=== PATIENT | female | born 1935 | race Two or more races ===

== ENCOUNTER 2017-10-30 17:54 | Inpatient (IN) | payer MEDICARE, OTHER ==
[~2017-10-30] VITALS: Ht 149.9 cm; Wt 71.0 kg
[2017-10-30] MEDS: Albuterol/Ipratropium 3ml neb HHN SCH ×2 (01:30→12:30)
[~2017-10-30 17:54] MED LIST: ACETAMINOPHEN500 MG ORAL; ISOSORBIDE DINI20 M2 PO; ISOSORBIDE MONO20 MG PO; LEVOTHYROXINE125 MCG ORAL; LIPITOR80 MG ORAL; PLAVIX75 MG ORAL; SERTRALINE HCL25 MG ORAL; TENORMIN100 MG ORAL
[2017-10-30 18:30] VITALS: BP 134/75
[2017-10-30] MEDS ORDERED: Guaifenesin/DM 10ml syrup ORAL PRN (20:30)
[2017-10-30 21:39] LABS: CREATINE KINASE 191 U/L (26-308)
[2017-10-30 21:45] LABS: ALANINE AMINOTRANSFERASE 49 U/L (12-78); ALBUMIN/GLOBULIN RATIO 0.7 (1.0-2.7); ALKALINE PHOSPHATASE 94 U/L (46-116); ANION GAP 5 mmol/L (5-15); ASPARTATE AMINO TRANSFERASE 60 U/L (15-37); BILIRUBIN,TOTAL 0.7 MG/DL (0.2-1.0); BLOOD UREA NITROGEN 11 mg/dL (7-18); CALCIUM 8.9 MG/DL (8.5-10.1); CARBON DIOXIDE 29 MMOL/L (21-32); CHLORIDE 100 MMOL/L (98-107); CREATININE 0.9 MG/DL (0.55-1.30); HEMATOCRIT 36.7 % (37.0-47.0); HEMOGLOBIN 12.8 G/DL (12.0-16.0); LYMPHOCYTES % (AUTO) 19.4 % (20.0-45.0); MEAN CORPUSCULAR VOLUME 90 FL (80-99); MONOCYTES % (AUTO) 5.6 % (1.0-10.0); PLATELET COUNT 270 K/UL (150-450); POTASSIUM 4.7 MMOL/L (3.5-5.1); RED BLOOD COUNT 4.05 M/UL (4.20-5.40); RED CELL DISTRIBUTION WIDTH 12.3 % (11.6-14.8); SODIUM 134 MMOL/L (136-145); WHITE BLOOD COUNT 9.9 K/UL (4.8-10.8)
[2017-10-30] MEDS: Heparin 5000 units/ml inj SUBQ SCH (22:00)
[2017-10-30] MEDS: cefTRIAXone 1 GM in NS 55 ML IVPB SCH (22:21)
[2017-10-30] MEDS: Azithromycin 500 MG in D5W 275 ML IV SCH (23:11)
--- NOTE | 2017-10-31 02:15 | Consultation ---
DATE OF CONSULTATION: 10/30/2017 CARDIOLOGY CONSULTATION CONSULTING PHYSICIAN: Gustavo Lynch M.D. REQUESTING PHYSICIAN: Salinas Jeronimo M.D. REASON FOR CONSULTATION: Tachycardia. HISTORY OF PRESENT ILLNESS: This 82-year-old female, recently traveled to [facility] for 2 months' time to visit family members. She was well and compliant with medications up until the last week of her stay. At that point, she developed frequency and dysuria and was treated for urinary tract infection and apparently subsequently also developed respiratory illness. She was hospitalized for a couple of days and returned home here to [place]. She was seen in my office and concern was raised over fevers, lethargy, and unremitting cough coupled with poor appetite and rapid heart rate. PAST MEDICAL HISTORY: Hypertension, arteriosclerotic cardiovascular disease, hypothyroidism, hyperlipidemia, osteoarthritis, degenerative disk disease, chronic kidney disease, and depression. MEDICATIONS: Medications prior to admission, reviewed and reconciled. ALLERGIES: Aspirin. SOCIAL HISTORY: Negative for smoking, alcohol, or substance abuse. REVIEW OF SYSTEMS: A 10-point review of systems performed, all pertinent systems noted above. Of note, the patient has had a prior echocardiogram as an outpatient, which was notable for normal ejection fraction, mild concentric hypertrophy, and minimal degenerative valve disease. PHYSICAL EXAMINATION: VITAL SIGNS: Temperature 100 degrees, blood pressure 134/75, pulse 98, respirations 20, and oxygen saturation on room air 96%. HEENT: Normocephalic and atraumatic. Conjunctivae pink. Oropharynx clear. Mucous membranes dry. NECK: Supple. Jugular venous pressure normal. LUNGS: With coarse breath sounds and rhonchi. No wheezing. CARDIAC: Regular rhythm. Rapid rate. Normal S1 and S2 with a fourth heart sound. ABDOMEN: Soft and nontender. EXTREMITIES: No clubbing, cyanosis, or edema. NEUROLOGIC: Nonfocal. The patient is much more withdrawn and lethargic than baseline. LABORATORY AND DIAGNOSTIC DATA: White count 9.9 and hemoglobin 12.8. Sodium 134, potassium 4.7, bicarbonate 29, BUN 11, and creatinine 0.9. Pro-natriuretic peptide 7494. TSH 6.6. Albumin 3.0. Chest x-ray is pending. IMPRESSION: 1. Toxic encephalopathy. 2. Secondary sinus tachycardia. 3. Hypovolemia and dehydration. 4. Hyponatremia. 5. Chronic diastolic congestive heart failure. 6. Moderate protein-calorie malnutrition. 7. Acute upper respiratory infection. 8. Possible pneumonia. 9. Hypothyroidism with slight elevation of TSH, likely due to recent travel and noncompliance. PLAN: 1. Cardiac monitoring. 2. Saline hydration. 3. Panculture. 4. Empiric antibiotics. 5. Bronchodilators. 6. Monitor volume status and cardiorenal parameters. 7. Protein supplement. 8. Resume thyroid replacement. 9. Check radiograph of the chest. 10. Adjust antimicrobials based on clinical parameters. 11. No present plan for diuresis. Gustavo Lynch M.D. DR: PIA JOB#: [id number] CC:
[2017-10-31] MEDS: Albuterol/Ipratropium 3ml neb HHN SCH ×6 (03:31→23:00)
[2017-10-31] MEDS: Levothyroxine 125mcg tab ORAL SCH (06:13)
[2017-10-31 07:16] LABS: APPEARANCE,URINE SLIGHTLY CLOUDY; BILIRUBIN, URINE NEGATIVE (NEGATIVE); COLOR,URINE PALE YELLOW; GLUCOSE, URINE (UA) NEGATIVE (NEGATIVE); KETONES,URINE NEGATIVE (NEGATIVE); LEUKOCYTE ESTERASE ,URINE 2+ (NEGATIVE); NITRITE,URINE POSITIVE (NEGATIVE); PH,URINE 7 (4.5-8.0); PROTEIN,URINE 1+ (NEGATIVE); UROBILINOGEN,URINE NORMAL MG/DL (0.0-1.0)
[2017-10-31 08:00] VITALS: BP 129/80
--- NOTE | 2017-10-31 08:44 | History and Physical Report ---
DATE OF ADMISSION: 10/30/2017 CHIEF COMPLAINT: Pneumonia, possible viral syndrome, and asthma exacerbation. HISTORY OF PRESENT ILLNESS: The patient is a pleasant 82-year-old female, well known to me. She has a history of hypertension, hypothyroidism, depression, and prior history of stroke, who recently traveled to [facility] and developed some type of a urinary tract infection. She apparently was hospitalized shortly there and then returned back to [place]. She saw her service sprinkler helper on the day of admission and was noted to be congested and short of breath with subjective fevers and chills. In light of her failure to respond to outpatient therapy, she is now admitted for further evaluation and care. She complains of shortness of breath. She notes audible wheezing. PAST MEDICAL HISTORY: As above. PAST SURGICAL HISTORY: None. CURRENT MEDICATIONS: Reconciled and reviewed. ALLERGIES: Aspirin. FAMILY HISTORY: Noncontributory. SOCIAL HISTORY: There is no known history of tobacco, ethanol, or drugs. REVIEW OF SYSTEMS: GENERAL: Positive fevers and chills, but no night sweats. HEENT: No headaches or visual changes. CARDIOPULMONARY: No chest pain. Positive shortness of breath, cough, and congestion. GASTROINTESTINAL: No nausea or vomiting. GENITOURINARY: No urgency or frequency. MUSCULOSKELETAL: No joint pain or swelling. NEUROLOGIC: No evidence of seizures. Positive history of stroke. PHYSICAL EXAMINATION: VITAL SIGNS: Temperature 100, pulse 90, respirations 18, and blood pressure 134/75. VITAL SIGNS: The patient is a well-developed female, in no apparent distress. HEART: Regular rate and rhythm. LUNGS: Significant scattered wheezes. ABDOMEN: Soft, nontender, and nondistended. EXTREMITIES: Without clubbing, cyanosis, or edema. LABORATORY DATA: Sodium was 134, potassium 4.7, BUN 11, and creatinine was 0.9. Natriuretic peptide level was 7400. Urine is currently pending. Chest x-ray report is also currently pending. ASSESSMENT: This is a pleasant female admitted with complaints of fevers, possibly secondary to pneumonia, cannot rule out recurrent urinary tract infection. She also has acute bronchospasm and asthma/chronic obstructive pulmonary disease exacerbation. She has prior history of stroke , hypertension, and hypothyroidism. PLAN: 1. IV antibiotics. 2. Intravenous steroids and respiratory treatments [id number]. 3. Broad-spectrum IV antibiotics. 4. Follow up chest x-ray. 5. Follow up urine studies. 6. Cardiology, Pulmonary, and ID consultation will be obtained. Salinas Jeronimo M.D. DR: HERBER JOB#: [id number] CC:
[2017-10-31] MEDS: Solu-MEDROL 40mg Inj IVP SCH ×3 (08:50→21:26)
[2017-10-31] MEDS: Heparin 5000 units/ml inj SUBQ SCH ×2 (08:51→21:27)
[2017-10-31 12:00] VITALS: BP 137/72
[2017-10-31 16:00] VITALS: BP 117/78
--- NOTE | 2017-10-31 16:15 | Consultation ---
DATE OF CONSULTATION: 10/31/2017 PULMONARY CONSULTATION CONSULTING PHYSICIAN: Florencio Khan M.D. REFERRING PHYSICIAN: Salinas Jeronimo M.D. REASON FOR CONSULTATION: Pneumonia. HISTORY: This is an 82-year-old female, poor historian. The patient apparently recently traveled to [facility]. The patient is of advanced age. The patient was noted to have some dysuria and urinary tract infection. The patient was also noted to have pneumonia on examination and x-ray. The patient with cough, congestion, poor appetite, and rapid heart rate. The patient is now being admitted for further care and management and I was called to assist and evaluate further. On examination, the patient was seen and evaluated. The patient's x-ray is suggestive of pneumonia per review. The patient's laboratories noted and reviewed. PAST MEDICAL HISTORY: Notable for hypertension, atherosclerotic heart disease, hypothyroidism, hyperlipidemia, osteoarthritis, degenerative disc disease, chronic kidney disease, and depression. MEDICATIONS: Reviewed. ALLERGIES: Reviewed. SOCIAL HISTORY: Nonsmoker and nondrinker. The patient is . The patient is retired. REVIEW OF SYSTEMS: All 10 points reviewed. The patient is fairly confused overall. The patient has no significant heart disease, but has left ventricular hypertrophy and has degenerative disc disease. PHYSICAL EXAMINATION: GENERAL: A well-developed female, comfortable, confused. VITAL SIGNS: Reviewed. Notable for T-max of 100, blood pressure 134/75, sats 97% on two liters, and respiratory rate 18. The patient is afebrile at 98.2. HEENT: Negative. Extraocular movements are grossly intact. Oropharynx is moist. No thrush. No lesions. No jugular venous distension. NECK: Supple. LUNGS: Scattered rhonchi and moderate air entry. CARDIAC: S1, S2. Regular rate and rhythm with positive S4. No murmurs or rubs. ABDOMEN: Soft and nontender. No distention. EXTREMITIES: No cyanosis or clubbing. The patient has unsteady gait. NEUROLOGIC: The patient is alert. Comfortable at present and verbal. LABORATORY DATA: Reviewed. White count 9.9 and hematocrit 36. Chemistries, sodium 134. Albumin is 3. TSH 6.657. IMPRESSION: 1. Early pneumonia. 2. Possible hypothyroidism. 3. Mild protein-calorie malnutrition. 4. Evidence of mild anemia. 5. Chronic encephalopathy. 6. Mild sinus tachycardia possibly due to dehydration. 7. Left ventricular hypertrophy. No clear evidence of active congestive heart failure. 8. Upper respiratory tract infection. 9. Possible underlying pulmonary congestion. RECOMMENDATIONS: 1. Supportive care. 2. Empiric antibiotics. 3. Followup imaging. 4. Followup pulmonary exam. 5. IV Solu-Medrol. 6. For the next 48 to 72 hours, we will monitor for need for worsening bronchospasms and nebulized therapy as needed and we will follow up clinically for further changes and interventions and ongoing recommendations and assist with any type of discharge planning. Florencio Khan M.D. DR: BROWN JOB#: [id number] CC: BENY
--- NOTE | 2017-10-31 16:31 | Diagnostic Imaging Report ---
Indication: Dyspnea Comparison: 10/31/2017 2 views of the chest obtained. The heart is enlarged. Interstitial densities are present within the lungs nonspecific. Bones are osteopenic. The aorta is ectatic and calcified. IMPRESSION: Interstitial prominence within the lungs nonspecific in nature. Cardiomegaly
[2017-10-31 20:00] VITALS: BP 122/82
[2017-10-31] MEDS: cefTRIAXone 1 GM in NS 55 ML IVPB SCH (21:26)
[2017-10-31] MEDS: Azithromycin 500 MG in D5W 275 ML IV SCH (22:37)
[2017-11-01] VITALS: BP 127/76
[2017-11-01] MEDS: Albuterol/Ipratropium 3ml neb HHN SCH ×6 (03:00→22:44)
--- NOTE | 2017-11-01 03:15 | Progress Note ---
DATE: 10/31/2017 CARDIOLOGY PROGRESS NOTE SUBJECTIVE: The patient continues to have cough and congestion. OBJECTIVE: VITAL SIGNS: Blood pressure 137/72, heart rate 97, respirations 18, and afebrile. HEENT: Dry mucous membranes. LUNGS: Coarse breath sounds. Scattered rhonchi. HEART: Regular rhythm and rate. Normal S1, S2. Fourth heart sound. ABDOMEN: Soft. EXTREMITIES: Trace edema. LABORATORY AND DIAGNOSTIC DATA: Chest x-ray with interstitial markings increased and cardiomegaly. Sodium 134, potassium 4.7, BUN 11, and creatinine 0.9. Pro-natriuretic peptide 7400 and TSH 6.6. White count 9.9 and hemoglobin 12.8. IMPRESSION: 1. Community-acquired pneumonia. 2. Acute on chronic diastolic congestive heart failure. 3. Hypertensive heart disease. 4. Possible urinary tract infection. 5. Hypothyroidism. 6. Mild protein-calorie malnutrition. 7. Hyponatremia. 8. Paroxysmal bronchospasm. PLAN: 1. Discontinue IV fluids. 2. Continue empiric antimicrobials. 3. Follow up chest x-ray. 4. Antiplatelet therapy with Plavix. 5. DVT prophylaxis. 6. Steroids with taper. Gustavo Lynch M.D. DR: SWETHA JOB#: [id number] CC:
[2017-11-01 04:00] VITALS: BP 139/79
[2017-11-01] MEDS: Levothyroxine 125mcg tab ORAL SCH (06:23)
[2017-11-01 07:54] LABS: HEMATOCRIT 36.4 % (37.0-47.0); HEMOGLOBIN 12.4 G/DL (12.0-16.0); MEAN CORPUSCULAR VOLUME 92 FL (80-99); PLATELET COUNT 345 K/UL (150-450); RED BLOOD COUNT 3.96 M/UL (4.20-5.40); RED CELL DISTRIBUTION WIDTH 12.4 % (11.6-14.8); WHITE BLOOD COUNT 11.8 K/UL (4.8-10.8)
[2017-11-01 08:00] VITALS: BP 129/76
[2017-11-01 08:06] LABS: ALANINE AMINOTRANSFERASE 49 U/L (12-78); ALBUMIN 2.5 G/DL (3.4-5.0); ALBUMIN/GLOBULIN RATIO 0.6 (1.0-2.7); ALKALINE PHOSPHATASE 88 U/L (46-116); ANION GAP 4 mmol/L (5-15); ASPARTATE AMINO TRANSFERASE 39 U/L (15-37); BILIRUBIN,TOTAL 0.4 MG/DL (0.2-1.0); BLOOD UREA NITROGEN 12 mg/dL (7-18); CALCIUM 8.8 MG/DL (8.5-10.1); CARBON DIOXIDE 26 MMOL/L (21-32); CHLORIDE 105 MMOL/L (98-107); CREATININE 0.7 MG/DL (0.55-1.30); POTASSIUM 4.7 MMOL/L (3.5-5.1); SODIUM 134 MMOL/L (136-145)
[2017-11-01] MEDS ORDERED: Milk of Magnesia 30ml Ud ORAL PRN (08:45)
[2017-11-01] MEDS: Solu-MEDROL 40mg Inj IVP SCH ×2 (08:45→21:05)
[2017-11-01] MEDS: Heparin 5000 units/ml inj SUBQ SCH ×2 (08:47→21:06)
--- NOTE | 2017-11-01 10:56 | Pulmonology Progress Note ---
Assessment/Plan Assessment/Plan IMPRESSION: 1. Early pneumonia. 2. Possible hypothyroidism. 3. Mild protein-calorie malnutrition. 4. Evidence of mild anemia. 5. Chronic encephalopathy. 6. Mild sinus tachycardia possibly due to dehydration. 7. Left ventricular hypertrophy. 8. Upper respiratory tract infection. 9. Possible underlying pulmonary congestion. PLAN respiratory care iv antibiotics monitor fluid status oxygen therapy as needed impression, plan, and exam edited and reviewed in detail care discussed with RN Subjective Allergies: Coded Allergies: ASPIRIN (Verified Allergy, Mild, 12/07/15) Subjective care noted events reviewed Objective Last 24 Hour Vital Signs Date Time Temp Pulse Resp B/P (MAP) Pulse Ox O2 Delivery O2 Flow Rate FiO2 11/01/17 08:00 95 11/01/17 08:00 97.2 96 16 129/76 97 Nasal Cannula 2.0 28 97.2 11/01/17 07:16 86 16 97 Nasal Cannula 2.0 28 11/01/17 07:05 Room Air 11/01/17 07:05 80 20 91 Room Air 11/01/17 07:05 91 Room Air 21 11/01/17 04:21 73 11/01/17 04:00 97.4 86 20 139/79 93 Nasal Cannula 2.0 97.4 11/01/17 03:52 Room Air 11/01/17 03:52 Room Air 11/01/17 00:00 97.8 78 19 127/76 96 Nasal Cannula 2.0 97.8 10/31/17 23:56 79 10/31/17 23:40 84 16 96 Room Air 10/31/17 23:40 Room Air 10/31/17 20:24 Nasal Cannula 2.0 28 10/31/17 20:23 97 Nasal Cannula 2.0 28 10/31/17 20:10 88 16 97 Nasal Cannula 2.0 28 10/31/17 20:02 86 20 93 Room Air 21 10/31/17 20:00 98.2 81 18 122/82 97 Nasal Cannula 2.0 98.2 10/31/17 19:49 84 10/31/17 16:00 97.5 98 18 117/78 96 Nasal Cannula 2.0 97.5 10/31/17 16:00 101 10/31/17 15:03 Room Air 10/31/17 15:03 Room Air 10/31/17 12:00 97.2 99 18 137/72 95 Nasal Cannula 2.0 97.2 10/31/17 12:00 97 10/31/17 11:32 Room Air 10/31/17 11:32 Room Air Intake and Output 10/31/17 11/01/17 19:00 07:00 Intake Total 360 ml 275 ml Balance 360 ml 275 ml Intake Oral 360 ml IV Total 275 ml # Voids 4 2 Objective GENERAL: A well-developed female, comfortable, confused. VITAL SIGNS: Reviewed. Notable for T-max of 100, blood pressure 134/75, sats 97% on two liters, and respiratory rate 18. The patient is afebrile at 98.2. HEENT: Negative. Extraocular movements are grossly intact. Oropharynx is moist. No thrush. No lesions. No jugular venous distension. NECK: Supple. LUNGS: Scattered rhonchi and moderate air entry. CARDIAC: S1, S2. Regular rate and rhythm with positive S4. No murmurs or rubs. ABDOMEN: Soft and nontender. No distention. EXTREMITIES: No cyanosis or clubbing. The patient has unsteady gait. NEUROLOGIC: The patient is alert. Comfortable at present and verbal. Microbiology Date/Time Source Procedure Growth Status 10/31/17 07:00 Urine,Clean Catch Urine Culture - Preliminary Gram Negative Bacillus 1 Resulted Laboratory Tests 11/01/17 06:19: White Blood Count 11.8H, Red Blood Count 3.96L, Hemoglobin 12.4, Hematocrit 36.4L, Mean Corpuscular Volume 92, Mean Corpuscular Hemoglobin 31.2H, Mean Corpuscular Hemoglobin Concent 33.9, Red Cell Distribution Width 12.4, Platelet Count 345, Mean Platelet Volume 6.6, Neutrophils (%) (Auto) , Lymphocytes (%) ( Auto) , Monocytes (%) (Auto) , Eosinophils (%) (Auto) , Basophils (%) (Auto) , Differential Total Cells Counted 100, Neutrophils % (Manual) 86H, Lymphocytes % (Manual) 10L, Monocytes % (Manual) 4, Eosinophils % (Manual) 0, Basophils % ( Manual) 0, Band Neutrophils 0, Platelet Estimate Adequate, Platelet Morphology Normal, Hypochromasia 1+, Sodium Level 134L, Potassium Level 4.7, Chloride Level 105, Carbon Dioxide Level 26, Anion Gap 4L, Blood Urea Nitrogen 12, Creatinine 0.7, Estimat Glomerular Filtration Rate , Glucose Level 151H, Calcium Level 8.8, Magnesium Level 2.2, Total Bilirubin 0.4, Aspartate Amino Transf (AST/SGOT) 39H, Alanine Aminotransferase (ALT/SGPT) 49, Alkaline Phosphatase 88, Total Protein 6.8, Albumin 2.5L, Globulin 4.3, Albumin/Globulin Ratio 0.6L Current Medications Medications (Trade) Dose Ordered Sig/Johnny Route PRN Reason Start Time Stop Time Status Last Admin Dose Admin Acetaminophen (Tylenol) 650 mg Q4H PRN ORAL Mild Pain/Temp > 100.5 10/30/17 20:30 11/29/17 20:29 10/31/17 19:59 Albuterol/ Ipratropium (Albuterol/ Ipratropium) 3 ml Q4HRT HHN 10/30/17 23:00 11/04/17 22:59 11/01/17 07:11 Azithromycin 500 mg/Dextrose 275 ml @ 275 mls/hr Q24HRS IV 10/30/17 22:30 11/05/17 23:29 10/31/17 22:37 Ceftriaxone Sodium 1 gm/ Sodium Chloride 55 ml @ 110 mls/hr Q24H IVPB 10/30/17 22:00 11/06/17 21:59 10/31/17 21:26 Clopidogrel Bisulfate (Plavix) 75 mg DAILY ORAL 10/31/17 09:00 11/30/17 08:59 11/01/17 08:45 Guaifenesin/ Dextromethorphan (Robitussin DM Syrup) 10 ml Q4H PRN ORAL For Cough 10/30/17 20:30 11/29/17 20:29 Heparin Sodium (Porcine) (Heparin 5000 units/ml) 5,000 units EVERY 12 HOURS SUBQ 10/30/17 22:00 11/29/17 21:59 11/01/17 08:47 Levothyroxine Sodium (Synthroid) 125 mcg DAILY@0630 ORAL 10/31/17 06:30 11/30/17 06:29 11/01/17 06:23 Magnesium Hydroxide (Mom) 30 ml DAILYPRN PRN ORAL Constipation 11/01/17 08:45 12/01/17 08:44 Methylprednisolone Sodium Succinate (Solu-MEDROL) 40 mg EVERY 12 HOURS IVP 11/01/17 09:00 12/01/17 08:59 11/01/17 08:45 Florencio Khan MD Nov 01, 2017 10:56
--- NOTE | 2017-11-01 11:41 | General Progress Note ---
Assessment/Plan Problem List: (1) COPD (chronic obstructive pulmonary disease) ICD Codes: J44.9 - Chronic obstructive pulmonary disease, unspecified SNOMED: 35407368 (2) CHF (congestive heart failure) ICD Codes: I50.9 - Heart failure, unspecified SNOMED: 21381645 (3) CVA (cerebral vascular accident) ICD Codes: I63.9 - Cerebral infarction, unspecified SNOMED: 752763942 (4) Pneumonia ICD Codes: J18.9 - Pneumonia, unspecified organism SNOMED: 360249901 Status: stable, not improved Assessment/Plan iv abx resp rx steroids follow up cultures lasix x 1 monitor cxr antiplt rx Subjective ROS Limited/Unobtainable: No Constitutional: Reports: malaise, weakness HEENT: Reports: no symptoms Cardiovascular: Reports: no symptoms Respiratory: Reports: cough, shortness of breath Gastrointestinal/Abdominal: Reports: no symptoms Genitourinary: Reports: no symptoms Neurologic/Psychiatric: Reports: pre-existing deficit Endocrine: Reports: no symptoms Hematologic/Lymphatic: Reports: no symptoms Allergies: Coded Allergies: ASPIRIN (Verified Allergy, Mild, 12/07/15) All Systems: reviewed and negative except above Subjective constipated. still with cough and congestion. no fever or chills. on steroids and resp rx. Objective Last 24 Hour Vital Signs Date Time Temp Pulse Resp B/P (MAP) Pulse Ox O2 Delivery O2 Flow Rate FiO2 11/01/17 11:22 83 16 Room Air 21 11/01/17 11:10 83 18 Room Air 21 11/01/17 08:00 95 11/01/17 08:00 97.2 96 16 129/76 97 Nasal Cannula 2.0 28 97.2 11/01/17 07:16 86 16 97 Nasal Cannula 2.0 28 11/01/17 07:05 Room Air 11/01/17 07:05 80 20 91 Room Air 21 11/01/17 07:05 91 Room Air 21 11/01/17 04:21 73 11/01/17 04:00 97.4 86 20 139/79 93 Nasal Cannula 2.0 97.4 11/01/17 03:52 Room Air 11/01/17 03:52 Room Air 11/01/17 00:00 97.8 78 19 127/76 96 Nasal Cannula 2.0 97.8 10/31/17 23:56 79 7/3/18 23:40 84 16 96 Room Air 10/31/17 23:40 Room Air 10/31/17 20:24 Nasal Cannula 2.0 28 10/31/17 20:23 97 Nasal Cannula 2.0 10/31/17 20:10 88 16 97 Nasal Cannula 2.0 10/31/17 20:02 86 20 93 Room Air 21 10/31/17 20:00 98.2 81 18 122/82 97 Nasal Cannula 2.0 98.2 10/31/17 19:49 84 10/31/17 16:00 97.5 98 18 117/78 96 Nasal Cannula 2.0 97.5 10/31/17 16:00 101 10/31/17 15:03 Room Air 10/31/17 15:03 Room Air 10/31/17 12:00 97.2 99 18 137/72 95 Nasal Cannula 2.0 97.2 10/31/17 12:00 97 Intake and Output 10/31/17 11/01/17 19:00 07:00 Intake Total 360 ml 275 ml Balance 360 ml 275 ml Intake Oral 360 ml IV Total 275 ml # Voids 4 2 Laboratory Tests 11/01/17 06:19: White Blood Count 11.8H, Red Blood Count 3.96L, Hemoglobin 12.4, Hematocrit 36.4L, Mean Corpuscular Volume 92, Mean Corpuscular Hemoglobin 31.2H, Mean Corpuscular Hemoglobin Concent 33.9, Red Cell Distribution Width 12.4, Platelet Count 345, Mean Platelet Volume 6.6, Neutrophils (%) (Auto) , Lymphocytes (%) ( Auto) , Monocytes (%) (Auto) , Eosinophils (%) (Auto) , Basophils (%) (Auto) , Differential Total Cells Counted 100, Neutrophils % (Manual) 86H, Lymphocytes % (Manual) 10L, Monocytes % (Manual) 4, Eosinophils % (Manual) 0, Basophils % ( Manual) 0, Band Neutrophils 0, Platelet Estimate Adequate, Platelet Morphology Normal, Hypochromasia 1+, Sodium Level 134L, Potassium Level 4.7, Chloride Level 105, Carbon Dioxide Level 26, Anion Gap 4L, Blood Urea Nitrogen 12, Creatinine 0.7, Estimat Glomerular Filtration Rate , Glucose Level 151H, Calcium Level 8.8, Magnesium Level 2.2, Total Bilirubin 0.4, Aspartate Amino Transf (AST/SGOT) 39H, Alanine Aminotransferase (ALT/SGPT) 49, Alkaline Phosphatase 88, Total Protein 6.8, Albumin 2.5L, Globulin 4.3, Albumin/Globulin Ratio 0.6L Height (Feet): 4 Height (Inches): 11.00 Weight (Pounds): 156 General Appearance: WD/WN, alert Neck: supple Cardiovascular: regular rhythm Respiratory/Chest: crackles/rales, rhonchi - bilaterally Abdomen: normal bowel sounds, non tender, soft, no organomegaly Edema: no edema noted Arm (L), no edema noted Arm (R), no edema noted Leg (L), no edema noted Leg (R), no edema noted Pedal (L), no edema noted Pedal (R), no edema noted Generalized Neurologic: mat repairer II-XII grossly normal Salinas Jeronimo MD Nov 01, 2017 11:41
[2017-11-01 12:00] VITALS: BP 120/78
[2017-11-01] MEDS: Piperacillin/Tazobactam 3.375 GM in D5W 110 ML IVPB SCH ×2 (12:02→22:14)
[2017-11-01 16:00] VITALS: BP 111/61
--- NOTE | 2017-11-01 16:30 | Consultation ---
DATE OF CONSULTATION: 11/01/2017 INFECTIOUS DISEASES CONSULTATION CONSULTING PHYSICIAN: Shawnee Lopez M.D. REFERRING PHYSICIAN: Salinas Jeronimo M.D. REASON FOR CONSULTATION: Pneumonia. HISTORY OF PRESENTING ILLNESS: This is an 82-year-old lady with history of hypertension, hypothyroidism, depression, and stroke, who recently traveled to [facility] and was found to have a urinary tract infection. She returned back to [place] and was found to have congestion, fever and chills, and shortness of breath. She was found to have a pneumonia and an Infectious Diseases consultation has been obtained for antibiotics. PAST MEDICAL HISTORY: 1. History of hypertension. 2. Hypothyroidism. 3. Depression. 4. CVA. MEDICATIONS: As an inpatient, she is on Solu-Medrol, milk of magnesia, clopidogrel, levothyroxine, albuterol ipratropium, ceftriaxone, azithromycin, subcutaneous heparin, Tylenol, and Robitussin cough syrup. ALLERGIES: She is allergic to aspirin. SOCIAL HISTORY: No history of smoking, alcohol, or drug use. FAMILY HISTORY: Unknown. REVIEW OF SYSTEMS: Unable to obtain currently. PHYSICAL EXAMINATION: VITAL SIGNS: Temperature of 97.2, T-max of 98.2, pulse of 96, respiratory rate of 16, blood pressure 129/76, and O2 saturation of 97%. HEENT: Pupils equally reactive to light and accommodation. Mouth appears clean without thrush. NECK: Supple. No adenopathy. No JVD. CARDIOVASCULAR: Regular rate and rhythm. No murmurs. LUNGS: Clear to auscultation bilaterally. No crackles. No wheezes. ABDOMEN: Soft and nontender. No organomegaly. EXTREMITIES: No cyanosis, no clubbing, no edema. LABORATORY AND DIAGNOSTIC DATA: White count 11.8, hemoglobin 12.4, hematocrit 36.4, MCV 92, and platelet count of 345,000 with neutrophils of 86%. Sodium 134, potassium 4.7, chloride 105, bicarb 26, BUN 12, creatinine 0.7, and glucose 151. Calcium 8.8. Total bilirubin 0.4. AST 39, ALT 49, and alkaline phosphatase 88. Total protein 6.8. Albumin 2.5. UA is showing 10 to 15 white cells. Urine culture is growing gram-negative rods. Chest x-ray is showing cardiomegaly. ASSESSMENT: This is an 82-year-old lady with hypertension, depression, and hypothyroidism, who comes in and is found to have. 1. Gram-negative urinary tract infection. 2. Depression. 3. Hypertension. PLAN: 1. Discontinue ceftriaxone and azithromycin. 2. We will start the patient on Zosyn. 3. We will follow up cultures and adjust antibiotics accordingly. I would like to thank, Dr. Jeronimo, for this consultation. Shawnee Lopez M.D. DR: ROOSEVELT JOB#: [id number] CC: Salinas Jeronimo M.D.
[2017-11-01 20:00] VITALS: BP 121/64
[2017-11-02] VITALS: BP 115/69
[2017-11-02] MEDS: Albuterol/Ipratropium 3ml neb HHN SCH ×6 (03:08→23:16)
[2017-11-02 04:00] VITALS: BP 111/55
--- NOTE | 2017-11-02 05:30 | Progress Note ---
DATE: 11/01/2017 CARDIOLOGY PROGRESS NOTE SUBJECTIVE: This patient has cough, congestion, and shortness of breath. Urine cultures have been positive. OBJECTIVE: VITAL SIGNS: Blood pressure 115/69, heart rate 80 to 97, respiratory rate 20, afebrile, oxygen saturation on room air 94% to 99%. LUNGS: Coarse breath sounds. Scattered rhonchi. HEART: Regular rhythm and rate. Normal S1, S2. There is a fourth heart sound. ABDOMEN: Soft, nontender. EXTREMITIES: No edema. IMPRESSION: 1. Pneumonia. 2. Urinary tract infection. 3. Acute and chronic diastolic congestive heart failure. 4. Hypertensive cardiomyopathy. 5. Severe protein-calorie malnutrition. 6. Hyponatremia. PLAN: 1. Antimicrobials. 2. Respiratory hygiene. 3. Fluid restriction. 4. Recheck chest x-ray and chemistry parameters and trend natriuretic peptide assay. 5. DVT prophylaxis. 6. Nasal oxygen. Gustavo Lynch M.D. DR: Shari JOB#: [id number] CC:
[2017-11-02] MEDS: Piperacillin/Tazobactam 3.375 GM in D5W 110 ML IVPB SCH ×3 (05:35→21:05)
[2017-11-02] MEDS: Levothyroxine 125mcg tab ORAL SCH (06:03)
[2017-11-02 07:51] LABS: HEMOGLOBIN 12.8 G/DL (12.0-16.0); MEAN CORPUSCULAR VOLUME 91 FL (80-99); PLATELET COUNT 408 K/UL (150-450); RED BLOOD COUNT 4.05 M/UL (4.20-5.40); RED CELL DISTRIBUTION WIDTH 12.2 % (11.6-14.8); WHITE BLOOD COUNT 14.2 K/UL (4.8-10.8)
[2017-11-02 08:00] VITALS: BP 127/75
[2017-11-02 08:16] LABS: ALANINE AMINOTRANSFERASE 48 U/L (12-78); ALBUMIN 2.7 G/DL (3.4-5.0); ALBUMIN/GLOBULIN RATIO 0.6 (1.0-2.7); ALKALINE PHOSPHATASE 88 U/L (46-116); ANION GAP 4 mmol/L (5-15); ASPARTATE AMINO TRANSFERASE 25 U/L (15-37); BILIRUBIN,TOTAL 0.4 MG/DL (0.2-1.0); BLOOD UREA NITROGEN 12 mg/dL (7-18); CARBON DIOXIDE 29 MMOL/L (21-32); CHLORIDE 104 MMOL/L (98-107); CREATININE 0.9 MG/DL (0.55-1.30); POTASSIUM 4.4 MMOL/L (3.5-5.1); SODIUM 137 MMOL/L (136-145)
--- NOTE | 2017-11-02 08:23 | Pulmonology Progress Note ---
Assessment/Plan Assessment/Plan IMPRESSION: 1. Early pneumonia. 2. Possible hypothyroidism. 3. Mild protein-calorie malnutrition. 4. Evidence of mild anemia. 5. Chronic encephalopathy. 6. Mild sinus tachycardia possibly due to dehydration. 7. Left ventricular hypertrophy. 8. Upper respiratory tract infection. 9. Possible underlying pulmonary congestion. PLAN respiratory care taper steroids iv antibiotics oxygen as needed monitor fluid status meds reviewed impression, plan, and exam edited and reviewed in detail care discussed with RN Subjective Allergies: Coded Allergies: ASPIRIN (Verified Allergy, Mild, 12/07/15) Subjective care noted events reviewed appears improved Objective Last 24 Hour Vital Signs Date Time Temp Pulse Resp B/P (MAP) Pulse Ox O2 Delivery O2 Flow Rate FiO2 11/02/17 07:14 88 16 97 Room Air 11/02/17 07:05 Room Air 11/02/17 07:05 93 Room Air 11/02/17 07:04 87 16 93 11/02/17 04:12 94 11/02/17 04:00 97.6 98 20 111/55 99 Room Air 2.0 21 97.6 11/02/17 03:23 89 16 99 Room Air 11/02/17 03:08 80 20 95 Room Air 11/02/17 00:00 97.6 97 20 115/69 94 Room Air 2.0 21 97.6 11/01/17 23:50 106 11/01/17 22:55 92 16 99 Room Air 11/01/17 22:44 79 20 94 Room Air 11/01/17 20:00 97.8 90 20 121/64 97 Room Air 2.0 21 97.8 11/01/17 19:47 86 16 99 Room Air 11/01/17 19:40 89 11/01/17 19:33 Room Air 11/01/17 19:33 86 20 93 Room Air 11/01/17 19:32 93 Room Air 11/01/17 16:00 97.6 96 18 111/61 93 Room Air 2.0 21 97.6 11/01/17 16:00 90 11/01/17 15:33 86 16 Room Air 11/01/17 15:25 82 18 93 Room Air 21 11/01/17 12:00 97.4 98 18 120/78 97 Room Air 2.0 21 97.4 11/01/17 12:00 102 11/01/17 11:22 83 16 Room Air 21 11/01/17 11:10 83 18 Room Air 21 Intake and Output 11/01/17 11/02/17 19:00 07:00 Intake Total 360 ml 169.96 ml Balance 360 ml 169.96 ml Intake Oral 360 ml IV Total 169.96 ml # Voids 3 2 Objective GENERAL: A well-developed female, comfortable, confused. stable HEENT: Negative. Extraocular movements are grossly intact. Oropharynx is moist. No thrush. No lesions. No jugular venous distension. NECK: Supple. LUNGS: reduced wheeze and rhonchi and moderate air entry. CARDIAC: S1, S2. Regular rate and rhythm with positive S4. No murmurs or rubs. ABDOMEN: Soft and nontender. No distention. EXTREMITIES: No cyanosis or clubbing. The patient has unsteady gait. NEUROLOGIC: The patient is alert. Comfortable at present and verbal. Microbiology Date/Time Source Procedure Growth Status 10/31/17 20:00 Sputum Expectorated Gram Stain - Final Resulted 10/31/17 20:00 Sputum Expectorated Sputum Culture Pending Resulted 10/31/17 07:00 Urine,Clean Catch Urine Culture - Preliminary Gram Negative Bacillus 1 Resulted Laboratory Tests 11/02/17 07:17: White Blood Count 14.2H, Red Blood Count 4.05L, Hemoglobin 12.8, Hematocrit 37.0 , Mean Corpuscular Volume 91, Mean Corpuscular Hemoglobin 31.5H, Mean Corpuscular Hemoglobin Concent 34.5, Red Cell Distribution Width 12.2, Platelet Count 408, Mean Platelet Volume 6.9, Neutrophils (%) (Auto) , Lymphocytes (%) ( Auto) , Monocytes (%) (Auto) , Eosinophils (%) (Auto) , Basophils (%) (Auto) , Neutrophils % (Manual) [Pending], Lymphocytes % (Manual) [Pending], Platelet Estimate [Pending], Platelet Morphology [Pending], Sodium Level 137, Potassium Level 4.4, Chloride Level 104, Carbon Dioxide Level 29, Anion Gap 4L, Blood Urea Nitrogen 12, Creatinine 0.9, Estimat Glomerular Filtration Rate , Glucose Level 147H, Calcium Level 9.0, Magnesium Level 2.1, Total Bilirubin 0.4, Aspartate Amino Transf (AST/SGOT) 25, Alanine Aminotransferase (ALT/SGPT) 48, Alkaline Phosphatase 88, Pro-B-Type Natriuretic Peptide [Pending], Total Protein 6.9, Albumin 2.7L, Globulin 4.2, Albumin/Globulin Ratio 0.6L Current Medications Medications (Trade) Dose Ordered Sig/Johnny Route PRN Reason Start Time Stop Time Status Last Admin Dose Admin Acetaminophen (Tylenol) 650 mg Q4H PRN ORAL Mild Pain/Temp > 100.5 10/30/17 20:30 11/29/17 20:29 10/31/17 19:59 Albuterol/ Ipratropium (Albuterol/ Ipratropium) 3 ml Q4HRT HHN 10/30/17 23:00 11/04/17 22:59 11/02/17 07:04 Clopidogrel Bisulfate (Plavix) 75 mg DAILY ORAL 10/31/17 09:00 11/30/17 08:59 11/01/17 08:45 Guaifenesin/ Dextromethorphan (Robitussin DM Syrup) 10 ml Q4H PRN ORAL For Cough 10/30/17 20:30 11/29/17 20:29 11/01/17 21:05 Heparin Sodium (Porcine) (Heparin 5000 units/ml) 5,000 units EVERY 12 HOURS SUBQ 10/30/17 22:00 11/29/17 21:59 11/01/17 21:06 Levothyroxine Sodium (Synthroid) 125 mcg DAILY@0630 ORAL 10/31/17 06:30 11/30/17 06:29 11/02/17 06:03 Magnesium Hydroxide (Mom) 30 ml DAILYPRN PRN ORAL Constipation 11/01/17 08:45 12/01/17 08:44 Methylprednisolone Sodium Succinate (Solu-MEDROL) 40 mg EVERY 12 HOURS IVP 11/01/17 09:00 12/01/17 08:59 11/01/17 21:05 Piperacillin Sod/ Tazobactam Sod 3.375 gm/Dextrose 110 ml @ 27.5 mls/hr EVERY 8 HOURS IVPB 11/01/17 12:00 11/06/17 11:59 11/02/17 05:35 Florencio Khan MD Nov 02, 2017 08:23
[2017-11-02] MEDS: Heparin 5000 units/ml inj SUBQ SCH ×2 (08:30→21:06)
[2017-11-02] MEDS: Solu-MEDROL 40mg Inj IVP SCH (08:31)
--- NOTE | 2017-11-02 09:14 | General Progress Note ---
Assessment/Plan Problem List: (1) COPD (chronic obstructive pulmonary disease) ICD Codes: J44.9 - Chronic obstructive pulmonary disease, unspecified SNOMED: 95847927 (2) CHF (congestive heart failure) ICD Codes: I50.9 - Heart failure, unspecified SNOMED: 39044621 (3) CVA (cerebral vascular accident) ICD Codes: I63.9 - Cerebral infarction, unspecified SNOMED: 988402865 (4) Pneumonia ICD Codes: J18.9 - Pneumonia, unspecified organism SNOMED: 212717762 Status: stable, progressing Assessment/Plan iv abx resp rx steroids follow up cultures monitor cxr- ordered for today antiplt rx Subjective ROS Limited/Unobtainable: No Constitutional: Reports: malaise, weakness HEENT: Reports: no symptoms Cardiovascular: Reports: no symptoms Respiratory: Reports: cough, shortness of breath, sputum Gastrointestinal/Abdominal: Reports: no symptoms Genitourinary: Reports: no symptoms Neurologic/Psychiatric: Reports: no symptoms Endocrine: Reports: no symptoms Hematologic/Lymphatic: Reports: no symptoms Allergies: Coded Allergies: ASPIRIN (Verified Allergy, Mild, 12/07/15) All Systems: reviewed and negative except above Subjective still with cough and congestion. no fever or chills. on steroids and resp rx. Objective Last 24 Hour Vital Signs Date Time Temp Pulse Resp B/P (MAP) Pulse Ox O2 Delivery O2 Flow Rate FiO2 11/02/17 07:14 88 16 97 Room Air 11/02/17 07:05 Room Air 11/02/17 07:05 93 Room Air 11/02/17 07:04 87 16 93 11/02/17 04:12 94 11/02/17 04:00 97.6 98 20 111/55 99 Room Air 2.0 21 97.6 11/02/17 03:23 89 16 99 Room Air 11/02/17 03:08 80 20 95 Room Air 21 11/02/17 00:00 97.6 97 20 115/69 94 Room Air 2.0 21 97.6 11/01/17 23:50 106 11/01/17 22:55 92 16 99 Room Air 21 11/01/17 22:44 79 20 94 Room Air 21 11/01/17 20:00 97.8 90 20 121/64 97 Room Air 2.0 21 97.8 11/01/17 19:47 86 16 99 Room Air 21 11/01/17 19:40 89 11/01/17 19:33 Room Air 21 11/01/17 19:33 86 20 93 Room Air 21 11/01/17 19:32 93 Room Air 21 11/01/17 16:00 97.6 96 18 111/61 93 Room Air 2.0 21 97.6 11/01/17 16:00 90 11/01/17 15:33 86 16 Room Air 21 11/01/17 15:25 82 18 93 Room Air 21 11/01/17 12:00 97.4 98 18 120/78 97 Room Air 2.0 21 97.4 11/01/17 12:00 102 11/01/17 11:22 83 16 Room Air 21 11/01/17 11:10 83 18 Room Air 21 Intake and Output 11/01/17 11/02/17 19:00 07:00 Intake Total 360 ml 169.96 ml Balance 360 ml 169.96 ml Intake Oral 360 ml IV Total 169.96 ml # Voids 3 2 Laboratory Tests 11/02/17 07:17: White Blood Count 14.2H, Red Blood Count 4.05L, Hemoglobin 12.8, Hematocrit 37.0 , Mean Corpuscular Volume 91, Mean Corpuscular Hemoglobin 31.5H, Mean Corpuscular Hemoglobin Concent 34.5, Red Cell Distribution Width 12.2, Platelet Count 408, Mean Platelet Volume 6.9, Neutrophils (%) (Auto) , Lymphocytes (%) ( Auto) , Monocytes (%) (Auto) , Eosinophils (%) (Auto) , Basophils (%) (Auto) , Differential Total Cells Counted 100, Neutrophils % (Manual) 83H, Lymphocytes % (Manual) 10L, Monocytes % (Manual) 7, Eosinophils % (Manual) 0, Basophils % ( Manual) 0, Band Neutrophils 0, Platelet Estimate Adequate, Platelet Morphology Normal, Red Blood Cell Morphology Normal, Sodium Level 137, Potassium Level 4.4 , Chloride Level 104, Carbon Dioxide Level 29, Anion Gap 4L, Blood Urea Nitrogen 12, Creatinine 0.9, Estimat Glomerular Filtration Rate , Glucose Level 147H, Calcium Level 9.0, Magnesium Level 2.1, Total Bilirubin 0.4, Aspartate Amino Transf (AST/SGOT) 25, Alanine Aminotransferase (ALT/SGPT) 48, Alkaline Phosphatase 88, Pro-B-Type Natriuretic Peptide 6510H, Total Protein 6.9, Albumin 2.7L, Globulin 4.2, Albumin/Globulin Ratio 0.6L Height (Feet): 4 Height (Inches): 11.00 Weight (Pounds): 156 Objective General Appearance: WD/WN, alert Neck: supple Cardiovascular: regular rhythm Respiratory/Chest: crackles/rales, rhonchi - bilaterally Abdomen: normal bowel sounds, non tender, soft, no organomegaly Edema: no edema noted Arm (L), no edema noted Arm (R), no edema noted Leg (L), no edema noted Leg (R), no edema noted Pedal (L), no edema noted Pedal (R), no edema noted Generalized Neurologic: licensed and certified midwife II-XII grossly normal [place] Jeronimo MD Nov 02, 2017 09:14
--- NOTE | 2017-11-02 11:06 | Diagnostic Imaging Report ---
Indication: Cough Technique, PA and lateral views of the chest Comparison: 10/31/2017 Findings: Stable borderline cardiomegaly. Aorta is again noted to be calcified and tortuous. Nonspecific interstitial prominence is unchanged. There is linear atelectasis or scarring in the peripheral left lower lung. No new focal consolidation, pleural effusion or pneumothorax. The bones are diffusely demineralized. No acute osseous abnormality is appreciated. Imaged upper abdomen grossly unremarkable. IMPRESSION: No significant interval change compared to exam of 10/31/2017. Cardiomegaly and nonspecific interstitial prominence. No focal consolidation.
--- NOTE | 2017-11-02 11:07 | Infectious Diseases Prog Note ---
Assessment/Plan Assessment/Plan A; UTI COPD/ Bronchitis Leukocytosis may be steroid related Hypothyroidism HPN P: Continue Zosyn will f/u cultures Subjective ROS Limited/Unobtainable: No Constitutional: Reports: no symptoms Respiratory: Reports: dry cough Cardiovascular: Reports: no symptoms Gastrointestinal/Abdominal: Reports: no symptoms Genitourinary: Reports: no symptoms Musculoskeletal: Reports: no symptoms Allergies: Coded Allergies: ASPIRIN (Verified Allergy, Mild, 12/07/15) Objective Vital Signs Last 24 Hour Vital Signs Date Time Temp Pulse Resp B/P (MAP) Pulse Ox O2 Delivery O2 Flow Rate FiO2 11/02/17 10:55 87 18 98 Room Air 11/02/17 10:44 84 16 95 Room Air 11/02/17 08:00 107 11/02/17 08:00 97.8 96 16 127/75 97 Room Air 2.0 21 97.8 11/02/17 07:14 88 16 97 Room Air 11/02/17 07:05 Room Air 11/02/17 07:05 93 Room Air 11/02/17 07:04 87 16 93 Room Air 11/02/17 04:12 94 11/02/17 04:00 97.6 98 20 111/55 99 Room Air 2.0 21 97.6 11/02/17 03:23 89 16 99 Room Air 11/02/17 03:08 80 20 95 Room Air 11/02/17 00:00 97.6 97 20 115/69 94 Room Air 2.0 21 97.6 11/01/17 23:50 106 11/01/17 22:55 92 16 99 Room Air 11/01/17 22:44 79 20 94 Room Air 11/01/17 20:00 97.8 90 20 121/64 97 Room Air 2.0 21 97.8 11/01/17 19:47 86 16 99 Room Air 11/01/17 19:40 89 11/01/17 19:33 Room Air 11/01/17 19:33 86 20 93 Room Air 11/01/17 19:32 93 Room Air 11/01/17 16:00 97.6 96 18 111/61 93 Room Air 2.0 21 97.6 11/01/17 16:00 90 11/01/17 15:33 86 16 Room Air 21 11/01/17 15:25 82 18 93 Room Air 21 11/01/17 12:00 97.4 98 18 120/78 97 Room Air 2.0 21 97.4 11/01/17 12:00 102 11/01/17 11:22 83 16 Room Air 21 11/01/17 11:10 83 18 Room Air 21 Height (Feet): 4 Height (Inches): 11.00 Weight (Pounds): 156 HEENT: mucous membranes moist Respiratory/Chest: other - coarse sounds Cardiovascular: normal rate Abdomen: soft, non tender Extremities: no edema Neurologic/Psychiatric: alert, oriented x 3, responsive Microbiology Date/Time Source Procedure Growth Status 10/31/17 20:00 Sputum Expectorated Gram Stain - Final Resulted 10/31/17 20:00 Sputum Expectorated Sputum Culture Pending Resulted 10/31/17 07:00 Urine,Clean Catch Urine Culture - Preliminary Gram Negative Bacillus 1 Resulted Laboratory Tests Test 11/02/17 07:17 White Blood Count 14.2 K/UL (4.8-10.8) H Red Blood Count 4.05 M/UL (4.20-5.40) L Hemoglobin 12.8 G/DL (12.0-16.0) Hematocrit 37.0 % (37.0-47.0) Mean Corpuscular Volume 91 FL (80-99) Mean Corpuscular Hemoglobin 31.5 PG (27.0-31.0) H Mean Corpuscular Hemoglobin Concent 34.5 G/DL (32.0-36.0) Red Cell Distribution Width 12.2 % (11.6-14.8) Platelet Count 408 K/UL (150-450) Mean Platelet Volume 6.9 FL (6.5-10.1) Neutrophils (%) (Auto) % (45.0-75.0) Lymphocytes (%) (Auto) % (20.0-45.0) Monocytes (%) (Auto) % (1.0-10.0) Eosinophils (%) (Auto) % (0.0-3.0) Basophils (%) (Auto) % (0.0-2.0) Differential Total Cells Counted 100 Neutrophils % (Manual) 83 % (45-75) H Lymphocytes % (Manual) 10 % (20-45) L Monocytes % (Manual) 7 % (1-10) Eosinophils % (Manual) 0 % (0-3) Basophils % (Manual) 0 % (0-2) Band Neutrophils 0 % (0-8) Platelet Estimate Adequate Platelet Morphology Normal Red Blood Cell Morphology Normal Sodium Level 137 MMOL/L (136-145) Potassium Level 4.4 MMOL/L (3.5-5.1) Chloride Level 104 MMOL/L (98-107) Carbon Dioxide Level 29 MMOL/L (21-32) Anion Gap 4 mmol/L (5-15) L Blood Urea Nitrogen 12 mg/dL (7-18) Creatinine 0.9 MG/DL (0.55-1.30) Estimat Glomerular Filtration Rate mL/min (>60) Glucose Level 147 MG/DL (74-106) H Calcium Level 9.0 MG/DL (8.5-10.1) Magnesium Level 2.1 MG/DL (1.8-2.4) Total Bilirubin 0.4 MG/DL (0.2-1.0) Aspartate Amino Transf (AST/SGOT) 25 U/L (15-37) Alanine Aminotransferase (ALT/SGPT) 48 U/L (12-78) Alkaline Phosphatase 88 U/L (46-116) Pro-B-Type Natriuretic Peptide 6510 pg/mL (0-125) H Total Protein 6.9 G/DL (6.4-8.2) Albumin 2.7 G/DL (3.4-5.0) L Globulin 4.2 g/dL Albumin/Globulin Ratio 0.6 (1.0-2.7) L Current Medications Medications (Trade) Dose Ordered Sig/Johnny Route PRN Reason Start Time Stop Time Status Last Admin Dose Admin Acetaminophen (Tylenol) 650 mg Q4H PRN ORAL Mild Pain/Temp > 100.5 10/30/17 20:30 11/29/17 20:29 10/31/17 19:59 Albuterol/ Ipratropium (Albuterol/ Ipratropium) 3 ml Q4HRT HHN 10/30/17 23:00 11/04/17 22:59 11/02/17 10:44 Clopidogrel Bisulfate (Plavix) 75 mg DAILY ORAL 10/31/17 09:00 11/30/17 08:59 11/02/17 08:31 Guaifenesin/ Dextromethorphan (Robitussin DM Syrup) 10 ml Q4H PRN ORAL For Cough 10/30/17 20:30 11/29/17 20:29 11/01/17 21:05 Heparin Sodium (Porcine) (Heparin 5000 units/ml) 5,000 units EVERY 12 HOURS SUBQ 10/30/17 22:00 11/29/17 21:59 11/02/17 08:30 Levothyroxine Sodium (Synthroid) 125 mcg DAILY@0630 ORAL 10/31/17 06:30 11/30/17 06:29 11/02/17 06:03 Magnesium Hydroxide (Mom) 30 ml DAILYPRN PRN ORAL Constipation 11/01/17 08:45 12/01/17 08:44 Methylprednisolone Sodium Succinate (Solu-MEDROL) 40 mg DAILY IVP 11/02/17 09:00 12/01/17 08:59 11/02/17 08:31 Piperacillin Sod/ Tazobactam Sod 3.375 gm/Dextrose 110 ml @ 27.5 mls/hr EVERY 8 HOURS IVPB 11/01/17 12:00 11/06/17 11:59 11/02/17 05:35 Portillo Handley MD Nov 02, 2017 11:07
[2017-11-02 12:00] VITALS: BP 118/79
[2017-11-02 16:00] VITALS: BP 105/72
[2017-11-02 20:00] VITALS: BP 115/75
[2017-11-03] VITALS: BP 119/71
--- NOTE | 2017-11-03 01:30 | Progress Note ---
DATE: 11/02/2017 CARDIOLOGY PROGRESS NOTE SUBJECTIVE: The patient has less congestion and cough, but still is not comfortable during the day. She remains on steroids and inhaled bronchodilators. Her cough is nonproductive. OBJECTIVE: VITAL SIGNS: Oxygen saturation on room air is 93 to 99%, blood pressure 111/55, heart rate 98, and respiratory rate 20. She is afebrile. LUNGS: Coarse breath sounds with rhonchi. HEART: Regular rhythm and rate. Normal S1, S2 with a fourth heart sound. ABDOMEN: Soft and nontender. EXTREMITIES: With trace dependent edema. LABORATORY DATA: White count 14.2 and hemoglobin 12.8. Chemistry panel within normal limits. Pro-natriuretic peptide is 6500 and albumin is 2.7. Urine culture, E. coli. Chest x-ray today reveals no interval change with nonspecific interstitial prominence. IMPRESSION: 1. Possible viral pneumonitis. 2. Acute on chronic diastolic congestive heart failure. 3. Paroxysmal bronchospasm. 4. Type 2 diabetes mellitus. 5. Mild protein-calorie malnutrition. PLAN: 1. Avoid positive fluid balance. 2. Continue inhaled bronchodilators and empiric antibiotics. 3. Taper steroids. 4. DVT prophylaxis. 5. Mobilize with physical therapy. Gustavo Lynch M.D. DR: SWETHA JOB#: [id number] CC:
[2017-11-03] MEDS: Albuterol/Ipratropium 3ml neb HHN SCH ×6 (03:18→23:04)
[2017-11-03 04:00] VITALS: BP 136/73
[2017-11-03] MEDS: Piperacillin/Tazobactam 3.375 GM in D5W 110 ML IVPB SCH (06:22)
[2017-11-03] MEDS: Levothyroxine 125mcg tab ORAL SCH (06:22)
[2017-11-03 07:53] VITALS: BP 130/76
[2017-11-03] MEDS: Solu-MEDROL 40mg Inj IVP SCH (08:13)
[2017-11-03] MEDS: Heparin 5000 units/ml inj SUBQ SCH ×2 (08:17→21:01)
--- NOTE | 2017-11-03 08:25 | Pulmonology Progress Note ---
Assessment/Plan Assessment/Plan IMPRESSION: 1. Early pneumonia. 2. Possible hypothyroidism. 3. Mild protein-calorie malnutrition. 4. Evidence of mild anemia. 5. Chronic encephalopathy. 6. Mild sinus tachycardia possibly due to dehydration. 7. Left ventricular hypertrophy. 8. Upper respiratory tract infection. 9. Possible underlying pulmonary congestion. PLAN respiratory care dc steroids and monitor wbc elevated due to steroid use likely iv antibiotics ? po oxygen as needed monitor fluid status meds reviewed impression, plan, and exam edited and reviewed in detail care discussed with RN Subjective Allergies: Coded Allergies: ASPIRIN (Verified Allergy, Mild, 12/07/15) Subjective care noted events reviewed imaging reviewed no distress Objective Last 24 Hour Vital Signs Date Time Temp Pulse Resp B/P (MAP) Pulse Ox O2 Delivery O2 Flow Rate FiO2 11/03/17 07:53 98.1 104 18 130/76 95 Nasal Cannula 2.0 98.1 11/03/17 07:13 95 Room Air 11/03/17 07:13 Room Air 11/03/17 07:11 95 20 98 Room Air 11/03/17 07:04 94 20 94 Room Air 11/03/17 04:00 97.9 98 18 136/73 95 Nasal Cannula 2.0 97.9 11/03/17 04:00 92 11/03/17 03:27 89 18 98 Room Air 11/03/17 03:18 89 20 94 Room Air 11/03/17 00:00 97.9 94 14 119/71 95 Nasal Cannula 2.0 97.9 11/03/17 00:00 96 11/02/17 23:26 91 18 98 Room Air 11/02/17 23:16 93 20 95 Room Air 11/02/17 20:04 95 20 99 Room Air 11/02/17 20:00 97.3 99 20 115/75 96 Nasal Cannula 2.0 97.3 11/02/17 20:00 113 11/02/17 19:54 95 Room Air 11/02/17 19:54 98 20 95 Room Air 11/02/17 19:54 Room Air 11/02/17 16:00 141 11/02/17 16:00 97.9 98 20 105/72 95 Room Air 2.0 21 97.9 11/02/17 15:21 96 20 95 Room Air 21 7/5/18 15:14 100 20 95 Room Air 21 11/02/17 12:00 111 11/02/17 12:00 97.9 98 18 118/79 98 Room Air 2.0 21 97.9 11/02/17 10:55 87 18 98 Room Air 21 11/02/17 10:44 84 16 95 Room Air 21 Intake and Output 11/02/17 11/03/17 19:00 07:00 Intake Total 1030 ml 350.0 ml Balance 1030 ml 350.0 ml Intake Oral 1030 ml 240 ml IV Total 110.0 ml # Voids 7 1 # Bowel Movements 1 Objective GENERAL: A well-developed female, comfortable, confused. stable HEENT: Negative. Extraocular movements are grossly intact. Oropharynx is moist. No thrush. No lesions. No jugular venous distension. NECK: Supple. LUNGS: no wheeze and rhonchi and adequate air entry. CARDIAC: S1, S2. Regular rate and rhythm with positive S4. No murmurs or rubs. ABDOMEN: Soft and nontender. No distention. no HSM EXTREMITIES: No cyanosis or clubbing. The patient has unsteady gait. NEUROLOGIC: The patient is alert. Comfortable at present and verbal. Microbiology Date/Time Source Procedure Growth Status 10/31/17 20:00 Sputum Expectorated Gram Stain - Final Resulted 10/31/17 20:00 Sputum Expectorated Sputum Culture Pending Resulted Current Medications Medications (Trade) Dose Ordered Sig/Johnny Route PRN Reason Start Time Stop Time Status Last Admin Dose Admin Acetaminophen (Tylenol) 650 mg Q4H PRN ORAL Mild Pain/Temp > 100.5 10/30/17 20:30 11/29/17 20:29 10/31/17 19:59 Albuterol/ Ipratropium (Albuterol/ Ipratropium) 3 ml Q4HRT HHN 10/30/17 23:00 11/04/17 22:59 11/03/17 07:13 Clopidogrel Bisulfate (Plavix) 75 mg DAILY ORAL 10/31/17 09:00 11/30/17 08:59 11/03/17 08:13 Guaifenesin/ Dextromethorphan (Robitussin DM Syrup) 10 ml Q4H PRN ORAL For Cough 10/30/17 20:30 11/29/17 20:29 11/01/17 21:05 Heparin Sodium (Porcine) (Heparin 5000 units/ml) 5,000 units EVERY 12 HOURS SUBQ 10/30/17 22:00 11/29/17 21:59 11/03/17 08:17 Levothyroxine Sodium (Synthroid) 125 mcg DAILY@0630 ORAL 10/31/17 06:30 11/30/17 06:29 11/03/17 06:22 Magnesium Hydroxide (Mom) 30 ml DAILYPRN PRN ORAL Constipation 11/01/17 08:45 12/01/17 08:44 Methylprednisolone Sodium Succinate (Solu-MEDROL) 40 mg DAILY IVP 11/02/17 09:00 12/01/17 08:59 11/03/17 08:13 Piperacillin Sod/ Tazobactam Sod 3.375 gm/Dextrose 110 ml @ 27.5 mls/hr EVERY 8 HOURS IVPB 11/01/17 12:00 11/06/17 11:59 11/03/17 06:22 Sertraline HCl (Zoloft) 50 mg DAILY ORAL 11/03/17 09:00 12/03/17 08:59 11/03/17 08:13 Florencio Khan MD Nov 03, 2017 08:25
[2017-11-03] MEDS ORDERED: Sertraline 50mg tab ORAL SCH (09:00)
--- NOTE | 2017-11-03 10:57 | Infectious Diseases Prog Note ---
Assessment/Plan Assessment/Plan antibiotics : zosyn A 1. e.coli UTI 2. increasing leucocytosis ? secondary to steroids 3. hypertension 4. CVA P 1. d/c zosyn 2. start meropenem 3. will follow up cultures Subjective Constitutional: Denies: fever, chills Respiratory: Reports: shortness of breath, dry cough Gastrointestinal/Abdominal: Denies: nausea, vomiting, diarrhea Musculoskeletal: Reports: pain - in abdomen Allergies: Coded Allergies: ASPIRIN (Verified Allergy, Mild, 12/07/15) Objective Vital Signs Last 24 Hour Vital Signs Date Time Temp Pulse Resp B/P (MAP) Pulse Ox O2 Delivery O2 Flow Rate FiO2 11/03/17 08:00 108 11/03/17 07:53 98.1 104 18 130/76 95 Nasal Cannula 2.0 98.1 11/03/17 07:13 95 Room Air 11/03/17 07:13 Room Air 11/03/17 07:11 95 20 98 Room Air 11/03/17 07:04 94 20 94 Room Air 11/03/17 04:00 97.9 98 18 136/73 95 Nasal Cannula 2.0 97.9 11/03/17 04:00 92 11/03/17 03:27 89 18 98 Room Air 11/03/17 03:18 89 20 94 Room Air 11/03/17 00:00 97.9 94 14 119/71 95 Nasal Cannula 2.0 97.9 11/03/17 00:00 96 11/02/17 23:26 91 18 98 Room Air 11/02/17 23:16 93 20 95 Room Air 11/02/17 20:04 95 20 99 Room Air 11/02/17 20:00 97.3 99 20 115/75 96 Nasal Cannula 2.0 97.3 11/02/17 20:00 113 11/02/17 19:54 95 Room Air 11/02/17 19:54 98 20 95 Room Air 11/02/17 19:54 Room Air 11/02/17 16:00 141 11/02/17 16:00 97.9 98 20 105/72 95 Room Air 2.0 21 97.9 11/02/17 15:21 96 20 95 Room Air 11/02/17 15:14 100 20 95 Room Air 11/02/17 12:00 111 11/02/17 12:00 97.9 98 18 118/79 98 Room Air 2.0 21 97.9 11/02/17 10:55 87 18 98 Room Air 21 Height (Feet): 4 Height (Inches): 11.00 Weight (Pounds): 156 Respiratory/Chest: lungs clear Cardiovascular: normal rate, regular rhythm, no gallop/murmur Abdomen: soft, non tender Extremities: no edema Microbiology Date/Time Source Procedure Growth Status 10/31/17 20:00 Sputum Expectorated Gram Stain - Final Resulted 10/31/17 20:00 Sputum Culture - Preliminary Yeast Species Usual Upper Respiratory Kristy Resulted Current Medications Medications (Trade) Dose Ordered Sig/Johnny Route PRN Reason Start Time Stop Time Status Last Admin Dose Admin Acetaminophen (Tylenol) 650 mg Q4H PRN ORAL Mild Pain/Temp > 100.5 11/03/17 12:30 11/29/17 20:29 UNV Albuterol/ Ipratropium (Albuterol/ Ipratropium) 3 ml Q4HRT HHN 11/03/17 11:00 11/04/17 22:59 UNV Clopidogrel Bisulfate (Plavix) 75 mg DAILY ORAL 11/04/17 09:00 11/30/17 08:59 UNV Guaifenesin/ Dextromethorphan (Robitussin DM Syrup) 10 ml Q4H PRN ORAL For Cough 11/03/17 12:30 11/29/17 20:29 UNV Heparin Sodium (Porcine) (Heparin 5000 units/ml) 5,000 units EVERY 12 HOURS SUBQ 11/03/17 21:00 11/29/17 21:59 UNV Levothyroxine Sodium (Synthroid) 125 mcg DAILY@0630 ORAL 11/04/17 06:30 11/30/17 06:29 UNV Magnesium Hydroxide (Mom) 30 ml DAILYPRN PRN ORAL Constipation 11/04/17 08:45 12/01/17 08:44 UNV Piperacillin Sod/ Tazobactam Sod 3.375 gm/Dextrose 110 ml @ 27.5 mls/hr EVERY 8 HOURS IVPB 11/03/17 14:00 11/06/17 11:59 UNV Sertraline HCl (Zoloft) 50 mg DAILY ORAL 11/04/17 09:00 12/03/17 08:59 UNV SIRISHA ARREOLA Nov 03, 2017 10:57
--- NOTE | 2017-11-03 10:59 | General Progress Note ---
Assessment/Plan Problem List: (1) COPD (chronic obstructive pulmonary disease) ICD Codes: J44.9 - Chronic obstructive pulmonary disease, unspecified SNOMED: 25283623 (2) CHF (congestive heart failure) ICD Codes: I50.9 - Heart failure, unspecified SNOMED: 18710362 (3) CVA (cerebral vascular accident) ICD Codes: I63.9 - Cerebral infarction, unspecified SNOMED: 498442019 (4) Pneumonia ICD Codes: J18.9 - Pneumonia, unspecified organism SNOMED: 865904542 Status: stable, progressing Assessment/Plan iv abx per id resp rx steroids- po per pulm follow up cultures monitor cxr- antiplt rx dc planning when able to switch to oral abx. pt/ot Subjective ROS Limited/Unobtainable: No Constitutional: Reports: malaise, weakness HEENT: Reports: no symptoms Cardiovascular: Reports: no symptoms Respiratory: Reports: cough, shortness of breath Gastrointestinal/Abdominal: Reports: no symptoms Genitourinary: Reports: no symptoms Neurologic/Psychiatric: Reports: pre-existing deficit Endocrine: Reports: no symptoms Hematologic/Lymphatic: Reports: no symptoms Allergies: Coded Allergies: ASPIRIN (Verified Allergy, Mild, 12/07/15) All Systems: reviewed and negative except above Subjective still with cough and congestion. no fever or chills. on steroids and resp rx. pulm noted. ID noted- on iv lesley for esbl uti Objective Last 24 Hour Vital Signs Date Time Temp Pulse Resp B/P (MAP) Pulse Ox O2 Delivery O2 Flow Rate FiO2 11/03/17 08:00 108 11/03/17 07:53 98.1 104 18 130/76 95 Nasal Cannula 2.0 98.1 11/03/17 07:13 95 Room Air 21 11/03/17 07:13 Room Air 21 11/03/17 07:11 95 20 98 Room Air 21 11/03/17 07:04 94 20 94 Room Air 11/03/17 04:00 97.9 98 18 136/73 95 Nasal Cannula 2.0 97.9 11/03/17 04:00 92 11/03/17 03:27 89 18 98 Room Air 21 11/03/17 03:18 89 20 94 Room Air 21 11/03/17 00:00 97.9 94 14 119/71 95 Nasal Cannula 2.0 97.9 11/03/17 00:00 96 11/02/17 23:26 91 18 98 Room Air 21 11/02/17 23:16 93 20 95 Room Air 21 11/02/17 20:04 95 20 99 Room Air 21 11/02/17 20:00 97.3 99 20 115/75 96 Nasal Cannula 2.0 97.3 11/02/17 20:00 113 11/02/17 19:54 95 Room Air 11/02/17 19:54 98 20 95 Room Air 21 11/02/17 19:54 Room Air 11/02/17 16:00 141 11/02/17 16:00 97.9 98 20 105/72 95 Room Air 2.0 21 97.9 11/02/17 15:21 96 20 95 Room Air 21 11/02/17 15:14 100 20 95 Room Air 21 11/02/17 12:00 111 11/02/17 12:00 97.9 98 18 118/79 98 Room Air 2.0 21 97.9 Intake and Output 11/02/17 11/03/17 19:00 07:00 Intake Total 1030 ml 350.0 ml Balance 1030 ml 350.0 ml Intake Oral 1030 ml 240 ml IV Total 110.0 ml # Voids 7 1 # Bowel Movements 1 Height (Feet): 4 Height (Inches): 11.00 Weight (Pounds): 156 Objective General Appearance: WD/WN, alert Neck: supple Cardiovascular: regular rhythm Respiratory/Chest: crackles/rales, rhonchi - bilaterally Abdomen: normal bowel sounds, non tender, soft, no organomegaly Edema: no edema noted Arm (L), no edema noted Arm (R), no edema noted Leg (L), no edema noted Leg (R), no edema noted Pedal (L), no edema noted Pedal (R), no edema noted 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
[2017-11-03] MEDS ORDERED: Guaifenesin/DM 10ml syrup ORAL PRN (11:00)
[2017-11-03] MEDS ORDERED: Milk of Magnesia 30ml Ud ORAL PRN (11:00)
[2017-11-03 12:00] VITALS: BP 110/74
[2017-11-03] MEDS: Meropenem 500 MG in NS 55 ML IVPB SCH ×2 (13:04→21:33)
[2017-11-03] MEDS ORDERED: Piperacillin/Tazobactam 3.375 GM in D5W 110 ML IVPB SCH (14:00)
[2017-11-03 16:00] VITALS: BP 111/76
[2017-11-03 20:00] VITALS: BP 97/55
[2017-11-04] VITALS: BP 130/76
[2017-11-04] MEDS: Albuterol/Ipratropium 3ml neb HHN SCH ×6 (03:23→22:57)
[2017-11-04 04:00] VITALS: BP 118/65
[2017-11-04] MEDS: Levothyroxine 125mcg tab ORAL SCH (06:07)
[2017-11-04] MEDS: Meropenem 500 MG in NS 55 ML IVPB SCH ×3 (06:07→21:05)
[2017-11-04 08:00] VITALS: BP 101/63
[2017-11-04] MEDS: Sertraline 50mg tab ORAL SCH (08:27)
[2017-11-04] MEDS: Heparin 5000 units/ml inj SUBQ SCH ×2 (08:28→21:05)
[2017-11-04] MEDS ORDERED: NS 275ml ONE (08:56)
[2017-11-04] MEDS ORDERED: Tubing IV Secondary IV ONE (08:56)
--- NOTE | 2017-11-04 11:08 | General Progress Note ---
Assessment/Plan Problem List: (1) COPD (chronic obstructive pulmonary disease) ICD Codes: J44.9 - Chronic obstructive pulmonary disease, unspecified SNOMED: 94316668 (2) CHF (congestive heart failure) ICD Codes: I50.9 - Heart failure, unspecified SNOMED: 44124635 (3) CVA (cerebral vascular accident) ICD Codes: I63.9 - Cerebral infarction, unspecified SNOMED: 726281067 (4) Pneumonia ICD Codes: J18.9 - Pneumonia, unspecified organism SNOMED: 154664031 Status: stable, progressing Assessment/Plan iv abx per id resp rx steroids- po per pulm follow up cultures monitor cxr- antiplt rx dc planning when able to switch to oral abx. pt/ot Subjective ROS Limited/Unobtainable: No Constitutional: Reports: malaise, weakness HEENT: Reports: no symptoms Cardiovascular: Reports: no symptoms Respiratory: Reports: cough, shortness of breath Gastrointestinal/Abdominal: Reports: no symptoms Genitourinary: Reports: no symptoms Neurologic/Psychiatric: Reports: no symptoms Endocrine: Reports: no symptoms Hematologic/Lymphatic: Reports: no symptoms Allergies: Coded Allergies: ASPIRIN (Verified Allergy, Mild, 12/07/15) All Systems: reviewed and negative except above Subjective still with cough and congestion but less. no fever or chills. on steroids and resp rx. pulm noted. ID noted- on iv lesley for esbl uti Objective Last 24 Hour Vital Signs Date Time Temp Pulse Resp B/P (MAP) Pulse Ox O2 Delivery O2 Flow Rate FiO2 11/04/17 09:00 Room Air 11/04/17 08:00 98.9 118 18 101/63 (76) 95 98.9 11/04/17 07:10 103 20 97 Room Air 21 11/04/17 07:00 95 Room Air 21 11/04/17 07:00 105 20 95 Room Air 21 11/04/17 07:00 Room Air 21 11/04/17 04:00 98.3 95 20 118/65 (82) 91 98.3 11/04/17 03:36 88 20 98 Room Air 21 11/04/17 03:23 87 20 94 Room Air 21 11/04/17 00:00 98.7 96 20 130/76 (94) 94 98.7 11/03/17 23:18 88 20 97 Room Air 21 11/03/17 23:04 89 20 94 Room Air 21 11/03/17 21:00 Room Air 11/03/17 20:00 98.4 105 20 97/55 (69) 93 98.4 11/03/17 19:19 92 20 97 Room Air 21 11/03/17 19:18 Room Air 21 11/03/17 19:11 95 Room Air 21 11/03/17 19:09 87 20 95 Room Air 21 11/03/17 16:00 97.3 110 20 111/76 (88) 95 97.3 11/03/17 15:28 97 20 98 Room Air 21 11/03/17 15:21 93 20 95 Room Air 21 11/03/17 12:00 97.1 92 20 110/74 (86) 100 97.1 11/03/17 11:09 99 22 98 Room Air 21 Intake and Output 11/03/17 11/04/17 19:00 07:00 Intake Total 775 ml 230 ml Balance 775 ml 230 ml Intake Oral 720 ml 120 ml IV Total 55 ml 110 ml # Voids 4 3 # Bowel Movements 1 Height (Feet): 4 Height (Inches): 11.00 Weight (Pounds): 156 Objective General Appearance: WD/WN, alert Neck: supple Cardiovascular: regular rhythm Respiratory/Chest: crackles/rales, rhonchi - bilaterally Abdomen: normal bowel sounds, non tender, soft, no organomegaly Edema: no edema noted Arm (L), no edema noted Arm (R), no edema noted Leg (L), no edema noted Leg (R), no edema noted Pedal (L), no edema noted Pedal (R), no edema noted 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
--- NOTE | 2017-11-04 11:16 | Pulmonology Progress Note ---
Assessment/Plan Assessment/Plan IMPRESSION: 1. Early pneumonia. 2. Possible hypothyroidism. 3. Mild protein-calorie malnutrition. 4. Evidence of mild anemia. 5. Chronic encephalopathy. 6. Mild sinus tachycardia possibly due to dehydration. 7. Left ventricular hypertrophy. 8. Upper respiratory tract infection. 9. Possible underlying pulmonary congestion. PLAN respiratory care off steroids and monitor wbc elevated -repeat ID noted oxygen as needed monitor fluid status meds reviewed impression, plan, and exam edited and reviewed in detail care discussed with RN Subjective Allergies: Coded Allergies: ASPIRIN (Verified Allergy, Mild, 12/07/15) Subjective care noted events reviewed imaging reviewed no distress Objective Last 24 Hour Vital Signs Date Time Temp Pulse Resp B/P (MAP) Pulse Ox O2 Delivery O2 Flow Rate FiO2 11/04/17 09:00 Room Air 11/04/17 08:00 98.9 118 18 101/63 (76) 95 98.9 11/04/17 07:10 103 20 97 Room Air 11/04/17 07:00 95 Room Air 11/04/17 07:00 105 20 95 Room Air 11/04/17 07:00 Room Air 11/04/17 04:00 98.3 95 20 118/65 (82) 91 98.3 11/04/17 03:36 88 20 98 Room Air 21 11/04/17 03:23 87 20 94 Room Air 11/04/17 00:00 98.7 96 20 130/76 (94) 94 98.7 11/03/17 23:18 88 20 97 Room Air 11/03/17 23:04 89 20 94 Room Air 11/03/17 21:00 Room Air 11/03/17 20:00 98.4 105 20 97/55 (69) 93 98.4 11/03/17 19:19 92 20 97 Room Air 21 11/03/17 19:18 Room Air 21 11/03/17 19:11 95 Room Air 21 11/03/17 19:09 87 20 95 Room Air 11/03/17 16:00 97.3 110 20 111/76 (88) 95 97.3 11/03/17 15:28 97 20 98 Room Air 21 11/03/17 15:21 93 20 95 Room Air 21 11/03/17 12:00 97.1 92 20 110/74 (86) 100 97.1 Intake and Output 11/03/17 11/04/17 19:00 07:00 Intake Total 775 ml 230 ml Balance 775 ml 230 ml Intake Oral 720 ml 120 ml IV Total 55 ml 110 ml # Voids 4 3 # Bowel Movements 1 Objective GENERAL: A well-developed female, comfortable, confused. stable HEENT: Negative. Extraocular movements are grossly intact. Oropharynx is moist. No thrush. No lesions. No jugular venous distension. NECK: Supple. LUNGS: no wheeze and rhonchi and adequate air entry. CARDIAC: S1, S2. Regular rate and rhythm with positive S4. No murmurs or rubs. ABDOMEN: Soft and nontender. No distention. no HSM EXTREMITIES: No cyanosis or clubbing. The patient has unsteady gait. NEUROLOGIC: The patient is alert. Comfortable at present and verbal. Current Medications Medications (Trade) Dose Ordered Sig/Johnny Route PRN Reason Start Time Stop Time Status Last Admin Dose Admin Acetaminophen (Tylenol) 650 mg Q4H PRN ORAL Mild Pain/Temp > 100.5 11/03/17 11:30 11/29/17 11:29 Albuterol/ Ipratropium (Albuterol/ Ipratropium) 3 ml Q4HRT HHN 11/03/17 11:00 11/04/17 22:59 11/04/17 07:51 Clopidogrel Bisulfate (Plavix) 75 mg DAILY ORAL 11/04/17 09:00 11/30/17 08:59 11/04/17 08:27 Guaifenesin/ Dextromethorphan (Robitussin DM Syrup) 10 ml Q4H PRN ORAL For Cough 11/03/17 11:00 11/29/17 10:59 Heparin Sodium (Porcine) (Heparin 5000 units/ml) 5,000 units EVERY 12 HOURS SUBQ 11/03/17 21:00 11/29/17 21:59 11/04/17 08:28 Levothyroxine Sodium (Synthroid) 125 mcg DAILY@0630 ORAL 11/04/17 06:30 11/30/17 06:29 11/04/17 06:07 Magnesium Hydroxide (Mom) 30 ml DAILYPRN PRN ORAL Constipation 11/03/17 11:00 12/03/17 10:59 Meropenem 500 mg/ Sodium Chloride 55 ml @ 110 mls/hr EVERY 8 HOURS IVPB 11/03/17 12:00 11/08/17 11:59 11/04/17 06:07 Sertraline HCl (Zoloft) 50 mg DAILY ORAL 11/04/17 09:00 12/03/17 08:59 11/04/17 08:27 Florencio Khan MD Nov 04, 2017 11:16
[2017-11-04 12:00] VITALS: BP 123/63
[2017-11-04 16:00] VITALS: BP 120/67
[2017-11-04 20:00] VITALS: BP 119/70
[2017-11-05] VITALS: BP 112/67
[2017-11-05 04:00] VITALS: BP 126/78
[2017-11-05] MEDS: Meropenem 500 MG in NS 55 ML IVPB SCH ×3 (05:13→21:14)
[2017-11-05] MEDS: Levothyroxine 125mcg tab ORAL SCH (06:06)
[2017-11-05 08:00] VITALS: BP 117/71
[2017-11-05] MEDS: Sertraline 50mg tab ORAL SCH (09:21)
[2017-11-05] MEDS: Heparin 5000 units/ml inj SUBQ SCH ×2 (09:24→21:13)
--- NOTE | 2017-11-05 09:54 | General Progress Note ---
Assessment/Plan Problem List: (1) COPD (chronic obstructive pulmonary disease) ICD Codes: J44.9 - Chronic obstructive pulmonary disease, unspecified SNOMED: 60515150 (2) CHF (congestive heart failure) ICD Codes: I50.9 - Heart failure, unspecified SNOMED: 04438380 (3) CVA (cerebral vascular accident) ICD Codes: I63.9 - Cerebral infarction, unspecified SNOMED: 874709628 (4) Pneumonia ICD Codes: J18.9 - Pneumonia, unspecified organism SNOMED: 721127874 Status: stable, progressing Assessment/Plan iv abx per id resp rx follow up cultures monitor cxr- antiplt rx dc planning tomorrow on oral abx if cleared by all pt/ot Subjective ROS Limited/Unobtainable: No Constitutional: Reports: malaise, weakness HEENT: Reports: no symptoms Cardiovascular: Reports: no symptoms Respiratory: Reports: cough Gastrointestinal/Abdominal: Reports: no symptoms Genitourinary: Reports: no symptoms Neurologic/Psychiatric: Reports: no symptoms Endocrine: Reports: no symptoms Hematologic/Lymphatic: Reports: no symptoms Allergies: Coded Allergies: ASPIRIN (Verified Allergy, Mild, 12/07/15) All Systems: reviewed and negative except above Subjective decreased cough and congestion. no fever or chills. off steroids. overall felling better. still weak Objective Last 24 Hour Vital Signs Date Time Temp Pulse Resp B/P (MAP) Pulse Ox O2 Delivery O2 Flow Rate FiO2 11/05/17 04:00 98.6 99 18 126/78 (94) 95 98.6 11/05/17 01:52 87 18 Room Air 11/05/17 00:00 98.6 107 18 112/67 (82) 98 98.6 11/04/17 23:05 104 20 98 Room Air 21 11/04/17 22:58 98 18 95 Room Air 21 11/04/17 21:00 Room Air 11/04/17 20:00 98.4 107 18 119/70 (86) 96 98.4 11/04/17 19:56 105 20 99 Room Air 21 11/04/17 19:50 101 20 94 Room Air 21 11/04/17 19:50 Room Air 21 11/04/17 19:50 94 Room Air 21 11/04/17 16:00 98.1 99 20 120/67 (84) 96 98.1 11/04/17 15:02 104 20 98 Room Air 21 11/04/17 14:53 101 20 94 Room Air 21 11/04/17 12:29 101 20 99 Room Air 21 11/04/17 12:20 96 20 95 Room Air 21 11/04/17 12:00 97.8 94 21 123/63 (83) 96 97.8 Intake and Output 11/04/17 11/05/17 19:00 07:00 Intake Total 615 ml 360 ml Balance 615 ml 360 ml Intake Oral 250 ml IV Total 55 ml 110 ml Other 560 ml # Voids 3 3 Laboratory Tests 11/05/17 09:20: White Blood Count [Pending], Red Blood Count [Pending], Hemoglobin [Pending], Hematocrit [Pending], Mean Corpuscular Volume [Pending], Mean Corpuscular Hemoglobin [Pending], Mean Corpuscular Hemoglobin Concent [Pending], Red Cell Distribution Width [Pending], Platelet Count [Pending], Mean Platelet Volume [ Pending], Neutrophils (%) (Auto) [Pending], Lymphocytes (%) (Auto) [Pending], Monocytes (%) (Auto) [Pending], Eosinophils (%) (Auto) [Pending], Basophils (%) (Auto) [Pending], Sodium Level [Pending], Potassium Level [Pending], Chloride Level [Pending], Carbon Dioxide Level [Pending], Blood Urea Nitrogen [Pending], Creatinine [Pending], Estimat Glomerular Filtration Rate [Pending], Glucose Level [Pending], Calcium Level [Pending], Total Bilirubin [Pending], Aspartate Amino Transf (AST/SGOT) [Pending], Alanine Aminotransferase (ALT/SGPT) [Pending] , Alkaline Phosphatase [Pending], Total Protein [Pending], Albumin [Pending], Globulin [Pending] Height (Feet): 4 Height (Inches): 11.00 Weight (Pounds): 156 Objective General Appearance: WD/WN, alert Neck: supple Cardiovascular: regular rhythm Respiratory/Chest: crackles/rales, rhonchi - bilaterally Abdomen: normal bowel sounds, non tender, soft, no organomegaly Edema: no edema noted Arm (L), no edema noted Arm (R), no edema noted Leg (L), no edema noted Leg (R), no edema noted Pedal (L), no edema noted Pedal (R), no edema noted 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
[2017-11-05 09:55] LABS: BASOPHILS % (AUTO) 1.1 % (0.0-2.0); EOSINOPHILS % (AUTO) 2.8 % (0.0-3.0); HEMATOCRIT 42.4 % (37.0-47.0); HEMOGLOBIN 14.4 G/DL (12.0-16.0); LYMPHOCYTES % (AUTO) 13.9 % (20.0-45.0); MEAN CORPUSCULAR VOLUME 94 FL (80-99); MONOCYTES % (AUTO) 4.2 % (1.0-10.0); NEUTROPHILS % (AUTO) 78.1 % (45.0-75.0); PLATELET COUNT 500 K/UL (150-450); RED BLOOD COUNT 4.52 M/UL (4.20-5.40); WHITE BLOOD COUNT 13.4 K/UL (4.8-10.8)
[2017-11-05 10:19] LABS: ALANINE AMINOTRANSFERASE 56 U/L (12-78); ALBUMIN/GLOBULIN RATIO 0.7 (1.0-2.7); ALKALINE PHOSPHATASE 93 U/L (46-116); ANION GAP 3 mmol/L (5-15); ASPARTATE AMINO TRANSFERASE 36 U/L (15-37); BILIRUBIN,TOTAL 0.6 MG/DL (0.2-1.0); BLOOD UREA NITROGEN 9 mg/dL (7-18); CALCIUM 8.9 MG/DL (8.5-10.1); CARBON DIOXIDE 31 MMOL/L (21-32); CHLORIDE 102 MMOL/L (98-107); CREATININE 0.8 MG/DL (0.55-1.30); POTASSIUM 4.4 MMOL/L (3.5-5.1); SODIUM 136 MMOL/L (136-145)
--- NOTE | 2017-11-05 11:11 | Pulmonology Progress Note ---
Assessment/Plan Assessment/Plan IMPRESSION: 1. cleared pneumonia. 2. hypothyroidism. 3. Mild protein-calorie malnutrition. 4. Evidence of mild anemia. 5. Chronic encephalopathy. 6. sinus tachycardia possibly due to dehydration. 7. Left ventricular hypertrophy. 8. improved pulmonary congestion. PLAN respiratory care off steroids and monitor wbc elevated -repeat pulmonary same impression, plan, and exam edited and reviewed in detail care discussed with RN Subjective Allergies: Coded Allergies: ASPIRIN (Verified Allergy, Mild, 12/07/15) Subjective care noted events reviewed imaging reviewed no distress Objective Last 24 Hour Vital Signs Date Time Temp Pulse Resp B/P (MAP) Pulse Ox O2 Delivery O2 Flow Rate FiO2 11/05/17 04:00 98.6 99 18 126/78 (94) 95 98.6 11/05/17 01:52 87 18 Room Air 21 11/05/17 00:00 98.6 107 18 112/67 (82) 98 98.6 11/04/17 23:05 104 20 98 Room Air 21 11/04/17 22:58 98 18 95 Room Air 21 11/04/17 21:00 Room Air 11/04/17 20:00 98.4 107 18 119/70 (86) 96 98.4 11/04/17 19:56 105 20 99 Room Air 21 11/04/17 19:50 101 20 94 Room Air 21 11/04/17 19:50 Room Air 21 11/04/17 19:50 94 Room Air 21 11/04/17 16:00 98.1 99 20 120/67 (84) 96 98.1 11/04/17 15:02 104 20 98 Room Air 21 11/04/17 14:53 101 20 94 Room Air 21 11/04/17 12:29 101 20 99 Room Air 21 11/04/17 12:20 96 20 95 Room Air 21 11/04/17 12:00 97.8 94 21 123/63 (83) 96 97.8 Intake and Output 11/04/17 11/05/17 19:00 07:00 Intake Total 615 ml 360 ml Balance 615 ml 360 ml Intake Oral 250 ml IV Total 55 ml 110 ml Other 560 ml # Voids 3 3 Objective GENERAL: A well-developed female, comfortable, confused. stable HEENT: Negative. Extraocular movements are grossly intact. Oropharynx is moist. No thrush. No lesions. No jugular venous distension. NECK: Supple. LUNGS: no wheeze and rhonchi and adequate air entry. CARDIAC: S1, S2. Regular rate and rhythm with positive S4. No murmurs or rubs. ABDOMEN: Soft and nontender. No distention. no HSM EXTREMITIES: No cyanosis or clubbing. The patient has unsteady gait. NEUROLOGIC: The patient is alert. Comfortable at present and verbal. Laboratory Tests 11/05/17 09:20: White Blood Count 13.4H, Red Blood Count 4.52, Hemoglobin 14.4, Hematocrit 42.4 , Mean Corpuscular Volume 94, Mean Corpuscular Hemoglobin 31.9H, Mean Corpuscular Hemoglobin Concent 33.9, Red Cell Distribution Width 13.0, Platelet Count 500H, Mean Platelet Volume 6.2L, Neutrophils (%) (Auto) 78.1H, Lymphocytes (%) (Auto) 13.9L, Monocytes (%) (Auto) 4.2, Eosinophils (%) (Auto) 2.8, Basophils (%) (Auto) 1.1, Sodium Level 136, Potassium Level 4.4, Chloride Level 102, Carbon Dioxide Level 31, Anion Gap 3L, Blood Urea Nitrogen 9, Creatinine 0.8, Estimat Glomerular Filtration Rate , Glucose Level 106, Calcium Level 8.9, Total Bilirubin 0.6, Aspartate Amino Transf (AST/SGOT) 36, Alanine Aminotransferase (ALT/SGPT) 56, Alkaline Phosphatase 93, Total Protein 7.2, Albumin 3.0L, Globulin 4.2, Albumin/Globulin Ratio 0.7L Current Medications Medications (Trade) Dose Ordered Sig/Johnny Route PRN Reason Start Time Stop Time Status Last Admin Dose Admin Acetaminophen (Tylenol) 650 mg Q4H PRN ORAL Mild Pain/Temp > 100.5 11/03/17 11:30 11/29/17 11:29 Clopidogrel Bisulfate (Plavix) 75 mg DAILY ORAL 11/04/17 09:00 11/30/17 08:59 11/05/17 09:21 Guaifenesin/ Dextromethorphan (Robitussin DM Syrup) 10 ml Q4H PRN ORAL For Cough 11/03/17 11:00 11/29/17 10:59 Heparin Sodium (Porcine) (Heparin 5000 units/ml) 5,000 units EVERY 12 HOURS SUBQ 11/03/17 21:00 11/29/17 21:59 11/05/17 09:24 Levothyroxine Sodium (Synthroid) 125 mcg DAILY@0630 ORAL 11/04/17 06:30 11/30/17 06:29 11/05/17 06:06 Magnesium Hydroxide (Mom) 30 ml DAILYPRN PRN ORAL Constipation 11/03/17 11:00 12/03/17 10:59 Meropenem 500 mg/ Sodium Chloride 55 ml @ 110 mls/hr EVERY 8 HOURS IVPB 11/03/17 12:00 11/08/17 11:59 11/05/17 05:13 Sertraline HCl (Zoloft) 50 mg DAILY ORAL 11/04/17 09:00 12/03/17 08:59 11/05/17 09:21 Florencio Khan MD Nov 05, 2017 11:11
[2017-11-05 12:00] VITALS: BP 116/78
--- NOTE | 2017-11-05 13:46 | Infectious Diseases Prog Note ---
Assessment/Plan Assessment/Plan A; UTI with ESBL E.coli COPD/ Bronchitis Leukocytosis may be steroid related Hypothyroidism HPN P: Continue Meropenem At time of discharge change to PO Bactrim Subjective ROS Limited/Unobtainable: Yes Allergies: Coded Allergies: ASPIRIN (Verified Allergy, Mild, 12/07/15) Objective Vital Signs Last 24 Hour Vital Signs Date Time Temp Pulse Resp B/P (MAP) Pulse Ox O2 Delivery O2 Flow Rate FiO2 11/05/17 12:00 98.2 101 22 116/78 (91) 99 98.2 11/05/17 09:00 Room Air 11/05/17 08:00 98.1 96 22 117/71 (86) 99 98.1 11/05/17 04:00 98.6 99 18 126/78 (94) 95 98.6 11/05/17 01:52 87 18 Room Air 21 11/05/17 00:00 98.6 107 18 112/67 (82) 98 98.6 11/04/17 23:05 104 20 98 Room Air 21 11/04/17 22:58 98 18 95 Room Air 21 11/04/17 21:00 Room Air 11/04/17 20:00 98.4 107 18 119/70 (86) 96 98.4 11/04/17 19:56 105 20 99 Room Air 21 11/04/17 19:50 101 20 94 Room Air 21 11/04/17 19:50 Room Air 21 11/04/17 19:50 94 Room Air 21 11/04/17 16:00 98.1 99 20 120/67 (84) 96 98.1 11/04/17 15:02 104 20 98 Room Air 21 11/04/17 14:53 101 20 94 Room Air 21 Height (Feet): 4 Height (Inches): 11.00 Weight (Pounds): 156 General Appearance: no acute distress HEENT: mucous membranes moist Respiratory/Chest: lungs clear Cardiovascular: normal rate Abdomen: soft, non tender Extremities: no edema Neurologic/Psychiatric: other - sleeping Laboratory Tests Test 11/05/17 09:20 White Blood Count 13.4 K/UL (4.8-10.8) H Red Blood Count 4.52 M/UL (4.20-5.40) Hemoglobin 14.4 G/DL (12.0-16.0) Hematocrit 42.4 % (37.0-47.0) Mean Corpuscular Volume 94 FL (80-99) Mean Corpuscular Hemoglobin 31.9 PG (27.0-31.0) H Mean Corpuscular Hemoglobin Concent 33.9 G/DL (32.0-36.0) Red Cell Distribution Width 13.0 % (11.6-14.8) Platelet Count 500 K/UL (150-450) H Mean Platelet Volume 6.2 FL (6.5-10.1) L Neutrophils (%) (Auto) 78.1 % (45.0-75.0) H Lymphocytes (%) (Auto) 13.9 % (20.0-45.0) L Monocytes (%) (Auto) 4.2 % (1.0-10.0) Eosinophils (%) (Auto) 2.8 % (0.0-3.0) Basophils (%) (Auto) 1.1 % (0.0-2.0) Sodium Level 136 MMOL/L (136-145) Potassium Level 4.4 MMOL/L (3.5-5.1) Chloride Level 102 MMOL/L (98-107) Carbon Dioxide Level 31 MMOL/L (21-32) Anion Gap 3 mmol/L (5-15) L Blood Urea Nitrogen 9 mg/dL (7-18) Creatinine 0.8 MG/DL (0.55-1.30) Estimat Glomerular Filtration Rate mL/min (>60) Glucose Level 106 MG/DL (74-106) Calcium Level 8.9 MG/DL (8.5-10.1) Total Bilirubin 0.6 MG/DL (0.2-1.0) Aspartate Amino Transf (AST/SGOT) 36 U/L (15-37) Alanine Aminotransferase (ALT/SGPT) 56 U/L (12-78) Alkaline Phosphatase 93 U/L (46-116) Total Protein 7.2 G/DL (6.4-8.2) Albumin 3.0 G/DL (3.4-5.0) L Globulin 4.2 g/dL Albumin/Globulin Ratio 0.7 (1.0-2.7) L Current Medications Medications (Trade) Dose Ordered Sig/Johnny Route PRN Reason Start Time Stop Time Status Last Admin Dose Admin Acetaminophen (Tylenol) 650 mg Q4H PRN ORAL Mild Pain/Temp > 100.5 11/03/17 11:30 11/29/17 11:29 Clopidogrel Bisulfate (Plavix) 75 mg DAILY ORAL 11/04/17 09:00 11/30/17 08:59 11/05/17 09:21 Guaifenesin/ Dextromethorphan (Robitussin DM Syrup) 10 ml Q4H PRN ORAL For Cough 11/03/17 11:00 11/29/17 10:59 Heparin Sodium (Porcine) (Heparin 5000 units/ml) 5,000 units EVERY 12 HOURS SUBQ 11/03/17 21:00 11/29/17 21:59 11/05/17 09:24 Levothyroxine Sodium (Synthroid) 125 mcg DAILY@0630 ORAL 11/04/17 06:30 11/30/17 06:29 11/05/17 06:06 Magnesium Hydroxide (Mom) 30 ml DAILYPRN PRN ORAL Constipation 11/03/17 11:00 12/03/17 10:59 Meropenem 500 mg/ Sodium Chloride 55 ml @ 110 mls/hr EVERY 8 HOURS IVPB 11/03/17 12:00 11/08/17 11:59 11/05/17 12:11 Sertraline HCl (Zoloft) 50 mg DAILY ORAL 11/04/17 09:00 12/03/17 08:59 11/05/17 09:21 Portillo Handley MD Nov 05, 2017 13:46
[2017-11-05 16:00] VITALS: BP 124/78
[2017-11-05 20:00] VITALS: BP 122/65
[2017-11-06] VITALS: BP 119/70
[2017-11-06 04:00] VITALS: BP 128/69
[2017-11-06] MEDS: Levothyroxine 125mcg tab ORAL SCH (05:48)
[2017-11-06] MEDS: Meropenem 500 MG in NS 55 ML IVPB SCH (05:48)
[2017-11-06 08:00] VITALS: BP 120/75
[2017-11-06] MEDS: Sertraline 50mg tab ORAL SCH (08:29)
[2017-11-06] MEDS: Heparin 5000 units/ml inj SUBQ SCH (08:30)
--- NOTE | 2017-11-06 08:39 | Pulmonology Progress Note ---
Assessment/Plan Assessment/Plan IMPRESSION: 1. cleared pneumonia. 2. hypothyroidism. 3. Mild protein-calorie malnutrition. 4. Evidence of mild anemia. 5. Chronic encephalopathy. 6. sinus tachycardia possibly due to dehydration. 7. Left ventricular hypertrophy. 8. improved pulmonary congestion. PLAN respiratory care off steroids and monitor wbc elevated -likely reactive and due to steroids pulmonary same dc planning impression, plan, and exam edited and reviewed in detail care discussed with RN Subjective Allergies: Coded Allergies: ASPIRIN (Verified Allergy, Mild, 12/07/15) Subjective care noted events reviewed and discussed no new imaging no distress Objective Last 24 Hour Vital Signs Date Time Temp Pulse Resp B/P (MAP) Pulse Ox O2 Delivery O2 Flow Rate FiO2 11/06/17 04:00 98.8 90 20 128/69 (88) 97 98.8 11/06/17 00:00 98.4 92 20 119/70 (86) 96 98.4 11/05/17 21:00 Room Air 11/05/17 20:00 98.6 100 20 122/65 (84) 96 98.6 11/05/17 16:00 98.1 101 22 124/78 (93) 99 98.1 11/05/17 12:00 98.2 101 22 116/78 (91) 99 98.2 11/05/17 09:00 Room Air Intake and Output 11/05/17 11/06/17 19:00 07:00 Intake Total 1200 ml 110 ml Balance 1200 ml 110 ml Intake Oral 1200 ml IV Total 110 ml # Voids 1 2 Objective GENERAL: A well-developed female, comfortable, confused. stable HEENT: Negative. No jugular venous distension. NECK: Supple. LUNGS: no wheeze and rhonchi and adequate air entry. same CARDIAC: S1, S2. Regular rate and rhythm with positive S4. No murmurs or rubs. ABDOMEN: Soft and nontender. No distention. no HSM EXTREMITIES: No cyanosis or clubbing. The patient has unsteady gait. NEUROLOGIC: The patient is alert. Comfortable at present and verbal. Laboratory Tests 11/05/17 09:20: White Blood Count 13.4H, Red Blood Count 4.52, Hemoglobin 14.4, Hematocrit 42.4 , Mean Corpuscular Volume 94, Mean Corpuscular Hemoglobin 31.9H, Mean Corpuscular Hemoglobin Concent 33.9, Red Cell Distribution Width 13.0, Platelet Count 500H, Mean Platelet Volume 6.2L, Neutrophils (%) (Auto) 78.1H, Lymphocytes (%) (Auto) 13.9L, Monocytes (%) (Auto) 4.2, Eosinophils (%) (Auto) 2.8, Basophils (%) (Auto) 1.1, Sodium Level 136, Potassium Level 4.4, Chloride Level 102, Carbon Dioxide Level 31, Anion Gap 3L, Blood Urea Nitrogen 9, Creatinine 0.8, Estimat Glomerular Filtration Rate , Glucose Level 106, Calcium Level 8.9, Total Bilirubin 0.6, Aspartate Amino Transf (AST/SGOT) 36, Alanine Aminotransferase (ALT/SGPT) 56, Alkaline Phosphatase 93, Total Protein 7.2, Albumin 3.0L, Globulin 4.2, Albumin/Globulin Ratio 0.7L Current Medications Medications (Trade) Dose Ordered Sig/Johnny Route PRN Reason Start Time Stop Time Status Last Admin Dose Admin Acetaminophen (Tylenol) 650 mg Q4H PRN ORAL Mild Pain/Temp > 100.5 11/03/17 11:30 11/29/17 11:29 Clopidogrel Bisulfate (Plavix) 75 mg DAILY ORAL 11/04/17 09:00 11/30/17 08:59 11/06/17 08:29 Guaifenesin/ Dextromethorphan (Robitussin DM Syrup) 10 ml Q4H PRN ORAL For Cough 11/03/17 11:00 11/29/17 10:59 Heparin Sodium (Porcine) (Heparin 5000 units/ml) 5,000 units EVERY 12 HOURS SUBQ 11/03/17 21:00 11/29/17 21:59 11/06/17 08:30 Levothyroxine Sodium (Synthroid) 125 mcg DAILY@0630 ORAL 11/04/17 06:30 11/30/17 06:29 11/06/17 05:48 Magnesium Hydroxide (Mom) 30 ml DAILYPRN PRN ORAL Constipation 11/03/17 11:00 12/03/17 10:59 Meropenem 500 mg/ Sodium Chloride 55 ml @ 110 mls/hr EVERY 8 HOURS IVPB 11/03/17 12:00 11/08/17 11:59 11/06/17 05:48 Sertraline HCl (Zoloft) 50 mg DAILY ORAL 11/04/17 09:00 12/03/17 08:59 11/06/17 08:29 Florencio Khan MD Nov 06, 2017 08:39
--- NOTE | 2017-11-06 14:00 | Discharge Summary ---
DATE OF ADMISSION: 10/30/2017 DATE OF DISCHARGE: 11/06/2017 ADMISSION DIAGNOSES: 1. COPD exacerbation. 2. Possible CHF exacerbation. 3. ESBL UTI. 4. History of stroke. 5. Hypertension. DISCHARGE DIAGNOSES: 1. COPD exacerbation. 2. Possible CHF exacerbation. 3. ESBL UTI. 4. History of stroke. 5. Hypertension. HOSPITAL COURSE: The patient was admitted with complaint of shortness of breath. She was diagnosed with COPD and CHF exacerbation. She was thought to have possibly an early pneumonia. She received IV antibiotics. She did test positive for ESBL in the urine, was treated for ESBL UTI with possible early sepsis. She had gradual improvement in her COPD exacerbation. She did require intravenous steroids. On discharge, she was doing well. She completed all of her antibiotics while in house. DISCHARGE MEDICATIONS: Please see discharge medication list for discharge medications. DIET: Cardiac diet. ACTIVITIES: Ad-alayna. FOLLOWUP: The patient will follow up in the office in two to three weeks. Salinas Jeronimo M.D. DR: EDUAR JOB#: [id number] CC:
== END 2017-11-06 12:03 | disposition home or self-care (01) | DRG 190 ==
LOC: 2E 17:54 → 4E 11-03 10:30
DX: J44.1 Chronic obstructive pulmonary disease with (acute) exacerbation (principal); J18.9 Pneumonia, unspecified organism; I50.33 Acute on chronic diastolic (congestive) heart failure; G92 Toxic encephalopathy; N39.0 Urinary tract infection, site not specified; I13.0 Hypertensive heart and chronic kidney disease with heart failure and stage 1 through stage 4 chronic kidney disease, or unspecified chronic kidney disease; E87.1 Hypo-osmolality and hyponatremia; E44.1 Mild protein-calorie malnutrition; J44.0 Chronic obstructive pulmonary disease with (acute) lower respiratory infection; Z88.6 Allergy status to analgesic agent; E03.9 Hypothyroidism, unspecified; I25.10 Atherosclerotic heart disease of native coronary artery without angina pectoris; E78.5 Hyperlipidemia, unspecified; M19.90 Unspecified osteoarthritis, unspecified site; N18.9 Chronic kidney disease, unspecified; E86.0 Dehydration; R00.0 Tachycardia, unspecified; Z86.73 Personal history of transient ischemic attack (TIA), and cerebral infarction without residual deficits; E11.9 Type 2 diabetes mellitus without complications; B96.20 Unspecified Escherichia coli [E. coli] as the cause of diseases classified elsewhere; Z16.12 Extended spectrum beta lactamase (ESBL) resistance
CPT/HCPCS: 36415; 71046; 80053; 81003; 82550; 83735; 83880; 84443; 85007; 85025; 87070; 87086; 87181; 87205; 94640; 94664; 94760; J7620

== ENCOUNTER 2018-11-13 10:02 | Emergency (ER) | payer MEDICARE, OTHER ==
[~2018-11-13] VITALS: Ht 152.4 cm; Wt 54.4 kg
[2018-11-13 10:05] VITALS: BP 136/63
--- NOTE | 2018-11-13 10:05 | NUR ---
ED Nurse Note: Patient brought in to ER by daughter after she fell on the street. pt aao x4 and usually ambulatory but needs wc assist at this moment due to pain 10/10 on Rt knee. skin clean and intact but laceration and abrasion noted on Rt lower lip and Rt knee which caused by fall. calm and cooperative. daughter at bedside. pt is in gown and on monitoring and evaluation advisor. vss as documented. per pt and daughter pt slipped and fell on to Rt side of body. Rt lower lip has dried blood stain.
[2018-11-13] MEDS ORDERED: oxyCODONE HCL/Acetaminophen 5/325mg ORAL ONE (10:30)
[2018-11-13] MEDS ORDERED: Tetanus/Diptheria/Pertussis IM ONE (10:30)
--- NOTE | 2018-11-13 10:39 | NUR ---
ED Nurse Note: pt went down for CT by a tech in stable condition.
--- NOTE | 2018-11-13 10:57 | NUR ---
ED Nurse Note: pt came from CT by a tech in stable condition.
--- NOTE | 2018-11-13 11:08 | Emergency Room Report ---
History of Present Illness General Chief Complaint: Multiple Trauma/Fall Source: Patient, Family Member Present Illness HPI 83-year-old Female with a history of hypertension, enlarged heart, mini stroke presents with facial pain after a trip and fall today while she was in her backyard, she fell forward onto her knees and hit her face, denies neck pain, loss consciousness, reports bleeding from her mouth and injuring her teeth, but denies any other complaints such as severe headache, dizziness, numbness, tingling, weakness, and reports other than minor scrapes on her knees, she did not feel like she injured herself at all. He does report teeth got chipped but they were actually dental implants. Allergies: Coded Allergies: ASPIRIN (Verified Allergy, Mild, 12/07/15) Patient History Past Medical History: see triage record Last Menstrual Period: menopause Reviewed Nursing Documentation: PMH: Agreed; PSxH: Agreed Nursing Documentation-PMH Hx Cardiac Problems: Yes - Heart problem Hx Hypertension: Yes Hx Cancer: No Hx Gastrointestinal Problems: No Hx Neurological Problems: No Hx Cerebrovascular Accident: Yes Hx Syncope: Yes Hx Headaches: Yes Review of Systems All Other Systems: negative except mentioned in HPI Physical Exam Vital Signs Date Time Temp Pulse Resp B/P (MAP) Pulse Ox O2 Delivery O2 Flow Rate FiO2 11/13/18 10:04 79 15 136/63 (87) 98 Room Air 11/13/18 10:05 98.0 Sp02 EP Interpretation: reviewed, normal General Appearance: no apparent distress, alert, non-toxic Head: normocephalic, other - R mentum with ecchymosis, R maxillary and mandibular incisors and bicuspids with gingival bleeding, dental fx of teeth 6 & 7, lip abrasions Eyes: bilateral eye normal inspection, bilateral eye PERRL, bilateral eye EOMI ENT: normal ENT inspection, hearing grossly normal, normal pharynx, no angioedema, normal voice, moist mucus membranes Neck: normal inspection, full range of motion, supple, no bony tend, supple/ symm/no masses Respiratory: chest non-tender, lungs clear, normal breath sounds, chest symmetrical, palpation of chest normal Cardiovascular #1: normal peripheral pulses, regular rate, rhythm Cardiovascular #2: 2+ radial (R), 2+ radial (L) Gastrointestinal: normal inspection, non tender, soft, no mass, no guarding, no rebound Rectal: deferred Genitourinary: normal inspection, no CVA tenderness Musculoskeletal: back normal, gait/station normal, normal range of motion, non- tender, no calf tenderness, other - B/L knee abrasions, no effusions, FROM Neurologic: alert, responsive, heel shaver III-XII nml as tested, motor strength/tone normal, sensory intact, speech normal Psychiatric: judgement/insight normal, memory normal, mood/affect normal, no suicidal/homicidal ideation Skin: no rash, abrasion Lymphatic: no adenopathy Medical Decision Making Diagnostic Impression: Primary Impression: Fall Additional Impression: Fractured dental implant ER Course Patient's dental fractures are actually fractures of implants, they are not actively bleeding there is mild gingival bleeding around them, there is no pulp space visible and they are small fractures, I do not suspect that she ingested or aspirated the dental fracture so no x-ray was obtained. Was given a tetanus booster, analgesics, I have low suspicion for C-spine injury but given the mechanism of action I ordered a CT of her C-spine as well. For acute disease, there is no injury that needed repair, patient will be discharged after getting tetanus shot, recommend PMD follow-up CT/MRI/US Diagnostic Results CT/MRI/US Diagnostic Results : Imaging Test Ordered: ct head, maxillofacial, c-spine without contrast Last Vital Signs Date Time Temp Pulse Resp B/P (MAP) Pulse Ox O2 Delivery O2 Flow Rate FiO2 11/13/18 10:05 75 16 Room Air 11/13/18 10:05 98.0 136/63 98 Disposition: HOME, SELF-CARE Condition: Stable Referrals: Gustavo Lynch MD (PCP) RODERICK JERONIMO M.D Nov 13, 2018 11:07
--- NOTE | 2018-11-13 11:10 | NUR ---
ED Nurse Note: Daughter reported that pt has stopped taking Plavix by PCP. ERMD made aware.
--- NOTE | 2018-11-13 11:28 | Diagnostic Imaging Report ---
Indications: Head trauma, pain, lip laceration Technique: Spiral acquisitions obtained through the brain. Angled axial and coronal 5 x 5 mm slices were reconstructed. Total dose length product 1942.77 mGycm. CTDI vol(s) 70.38,28.19 mGy. Dose reduction achieved using automated exposure control Comparison: None. Findings: As there is age-related enlargement of the ventricles and extra axial CSF spaces. Cortical calcification is seen in the parasagittal right frontal lobe. No acute intracranial hemorrhage or edema, mass effect, nor midline shift. There is mild periventricular deep white matter low-attenuation consistent with chronic microvascular ischemic change. The calvarium is intact. The visualized orbits and sinuses are unremarkable. Impression: Chronic and age-related changes Negative for acute intracranial bleed or mass effect The CT scanner at [facility] is accredited by the [employer] and the scans are performed using protocols designed to limit radiation exposure to as low as reasonably achievable to attain images of sufficient resolution adequate for diagnostic evaluation.
--- NOTE | 2018-11-13 11:41 | Diagnostic Imaging Report ---
Indications: Fall, facial trauma Technique: Spiral images obtained through the facial bones. No IV contrast utilized. Multiplanar reconstructions were generated.Total dose length product 1942.77 mGycm. CTDIvol(s) 70.38,28.19 mGy. Dose reduction achieved using automated exposure control Comparison: none Findings: No acute fractures. There is mild right lower lobe soft tissue swelling demonstrated. No worrisome sinus opacification. No radiopaque foreign body. The optic globes are intact. Retroseptal orbits are unremarkable. There is rightward nasal septal deviation. The dentition is intact. The deep facial soft tissues are unremarkable. There is relative slight atrophy of the right submandibular gland as compared to the left. The upper aerodigestive tract is unremarkable. Impression: No acute bony trauma Mild evidence of right lower lip soft tissue injury The CT scanner at [facility] is accredited by the [employer] and the scans are performed using protocols designed to limit radiation exposure to as low as reasonably achievable to attain images of sufficient resolution adequate for diagnostic evaluation.
--- NOTE | 2018-11-13 11:52 | Diagnostic Imaging Report ---
Indication: Neck pain status post fall with trauma Technique: Spiral acquisitions obtained through the cervical spine. No IV contrast utilized. Multiplanar reconstructions were generated. Total dose length product 292.02 mGycm. CTDIvol(s) 16 mGy. Dose reduction achieved using automated exposure control. Comparison: 12/19/2015 Findings: Bony alignment is normal. No prevertebral soft tissue swelling. Vertebral body heights are preserved. No acute fractures. No dislocations. At C2-3, there is bilateral facet arthrosis. At C3-4, there is bilateral facet arthrosis and mild degenerative disc narrowing. At C4-5, posterior osteophytes result in moderate narrowing the spinal canal and impingement on the central aspect of the cord. There is moderate to severe left, mild to moderate right neural foraminal narrowing. There is moderate degenerative disc narrowing. There is bilateral facet arthrosis. At C5-6, posterior osteophytes and minimal posterior central disc protrusion result in moderate narrowing the spinal canal with slight impingement upon the central aspect of the anterior cord. There is moderate right and severe left neural foraminal stenosis. There is mild degenerative disc narrowing. There is mild right greater than left facet arthrosis. At the remaining disc levels, no significant disc bulge or protrusion, spinal stenosis, or neural foraminal stenosis. The included extra spinal soft tissues are unremarkable. The upper aerodigestive tract is unremarkable Findings are similar to those demonstrated previously. Impression: No acute bony trauma Degenerative changes, as delineated on a level by level basis above, no significant change since prior exam of 12/07/2015. The CT scanner at [facility] is accredited by the [employer] and the scans are performed using protocols designed to limit radiation exposure to as low as reasonably achievable to attain images of sufficient resolution adequate for diagnostic evaluation.
--- NOTE | 2018-11-13 12:32 | NUR ---
ED Nurse Note: asisted pt. to urinate at a commode provied at the bedside. turned off the lights to reduce stimulus due to pt.'s dizziness
[2018-11-13] MEDS ORDERED: ACETAMINOPHEN-1 EAC1 ORAL (12:39)
[2018-11-13 12:55] VITALS: BP 129/76
--- NOTE | 2018-11-13 12:56 | NUR ---
ER DISCHARGE NOTE: Patient is cleared to be discharged per ERMD, pt is aox4, accompanied by daughter, on room air, with stable vital signs. pt was given dc and prescription instructions, pt was able to verbalize understanding, pt id band and iv site removed without complications. pt is able to ambulate with steady gait. pt took all belongings.
== END 2018-11-13 12:56 | disposition home or self-care (01) ==
LOC: EMR 10:43
DX: K08.530 Fractured dental restorative material without loss of material (principal); Z88.6 Allergy status to analgesic agent; I10 Essential (primary) hypertension; Z86.73 Personal history of transient ischemic attack (TIA), and cerebral infarction without residual deficits; S00.511A Abrasion of lip, initial encounter; W01.0XXA Fall on same level from slipping, tripping and stumbling without subsequent striking against object, initial encounter; Y93.9 Activity, unspecified; Y92.007 Garden or yard of unspecified non-institutional (private) residence as the place of occurrence of the external cause; Z23 Encounter for immunization
CPT/HCPCS: 70450; 70486; 72125; 90471; 90715; 99284